=== PATIENT | male | born 1980 | race Caucasian/White ===

== ENCOUNTER 2016-11-10 10:31 | Emergency (ER) | payer MEDICAID ==
[2016-11-10 11:13] VITALS: BP 156/87
--- NOTE | 2016-11-10 11:30 | EDM.PDOC ---
ED HPI GENERAL MEDICAL PROBLEM - General Chief Complaint: General Stated Complaint: BLEEDING HEMORID??? Time Seen by Provider: 11/10/16 11:12 Source of Information: Reports: Patient, RN notes reviewed History Limitations: Reports: No limitations - History of Present Illness INITIAL COMMENTS - FREE TEXT/NARRATIVE: 36-year-old gentleman presents to the emergency department a complaint of bleeding hemorrhoid he states this started today he did pass a clot and had blood in the toilet it was significantly painful but the pain now has improved, as the new event has never had this before no history of colon cancer or inflammatory bowel Rectal Pain Score (Numeric/FACES): 7 - Related Data Allergies Allergy/AdvReac Type Severity Reaction Status Date / Time Sulfa (Sulfonamide Allergy Hives Verified 11/10/16 11:08 Antibiotics) Home Meds: Home Meds Ibuprofen 800 mg PO BID PRN 09/26/15 [History] Past Medical History Musculoskeletal History: Reports: Back pain, chronic, Other (see below) Other Musculoskeletal History: gets back injections Psychiatric History: Reports: Anxiety Hematologic History: Reports: Other (see below) Other Hematologic History: "high iron in my blood so I donate blood" - Infectious Disease History Infectious Disease History: Reports: Chicken pox Social & Family History - Tobacco Use Smoking Status *Q: Current Every Day Smoker Years of Tobacco use: 15 Packs/Tins Daily: 0.3 Used Tobacco, but Quit: No Second Hand Smoke Exposure: No - Caffeine Use Caffeine Use: Reports: Soda - Alcohol Use Days Per Week of Alcohol Use: 1 Number of Drinks Per Day: 2 Total Drinks Per Week: 2 - Recreational Drug Use Recreational Drug Use: No ED ROS GENERAL - Review of Systems Review Of Systems: See Below Constitutional: Reports: no symptoms Respiratory: Reports: no symptoms Cardiovascular: Reports: No symptoms GI/Abdominal: Reports: Bloody stool. Denies: Abdominal pain, Diarrhea, Nausea, Vomiting ED EXAM, GENERAL - Physical Exam Exam: See Below Exam Limited By: No limitations General Appearance: alert, WD/WN, no apparent distress Rectal (Males) Exam: Normal rectal tone, Bloody Stool, Hemorrhoids (Ruptured with bright red blood present) Course - Vital Signs Last Recorded V/S: Last Vital Signs Temp 97.2 F 11/10/16 11:07 Pulse 59 L 11/10/16 11:07 Resp 20 11/10/16 11:07 BP 156/87 H 11/10/16 11:07 Pulse Ox 96 11/10/16 11:07 Departure - Departure Time of Disposition: 11:27 Disposition: Home, Self-Care 01 Condition: good Clinical Impression: External hemorrhoid, bleeding Instructions: How to Take a Sitz Bath, Hemorrhoids, [id number] Referrals: Jerson Lyles LEATHER COATER [Primary Care Provider] - Forms: ED Department Discharge Additional Instructions: He used Anusol-HC as needed for symptomatic relief, follow the guidelines on the handout, follow up with her primary care next 3-5 days to evaluate the need for colonoscopy given your risk factors - Assessment/Plan Plan: Assessment Acuity = acute Site and laterality = hemorrhoid Etiology = unclear etiology Manifestations = none Location of injury = home Lab values = none Plan I did review pathophysiology with him and provided him Anusol HC for symptomatic relief as well as a handout on hemorrhoids with sitz baths and fiber diet asked him to follow up with his primary care provider to discuss the need for early colonoscopy given the rectal bleeding Patient was in agreement with the plan all questions were answered, they were instructed to return to the emergency department or call for worsening symptoms. This note was dictated using [employer] voice recognition software please call with any questions.
== END 2016-11-10 11:35 | disposition home or self-care (01) ==
LOC: JP.ED 10:31
DX: K64.4 Residual hemorrhoidal skin tags (principal); F17.210 Nicotine dependence, cigarettes, uncomplicated; Z88.2 Allergy status to sulfonamides; Z88.8 Allergy status to other drugs, medicaments and biological substances
CPT/HCPCS: 99283

== ENCOUNTER 2017-03-23 20:06 | Emergency (ER) | payer MEDICAID ==
[2017-03-23 20:32] VITALS: BP 145/95
--- NOTE | 2017-03-23 21:10 | EDM.PDOC ---
ED HPI GENERAL MEDICAL PROBLEM - General Stated Complaint: BACK HURTS NOT AN ACCIDENT Time Seen by Provider: 03/23/17 21:04 Source of Information: Reports: Patient History Limitations: Reports: No Limitations - History of Present Illness INITIAL COMMENTS - FREE TEXT/NARRATIVE: 36-year-old male with chronic documented low back pain that was doing better for the last 4-6 months after some steroid injections, has flared up again over the last several weeks. I reviewed his clinic records and he did have a reexamination recently and is set up to restart steroid injections in one week. He used a compactor at work which has increased his symptoms, he has left lower back pain radiating into the groin and also into the left buttock. No leg weakness or incontinence. He had Flexeril in the past and looked everywhere for the prescription and couldn't find them, he has only had 10 hydrocodone prescribed in the last year Onset: Gradual (Over the past several days) Location: Reports: Back Quality: Reports: Ache, Stabbing Severity: Moderate Worsens with: Reports: Movement Associated Symptoms: Reports: No Other Symptoms back Pain Score (Numeric/FACES): 10 - Related Data Allergies Allergy/AdvReac Type Severity Reaction Status Date / Time Sulfa (Sulfonamide Allergy Hives Verified 11/10/16 11:08 Antibiotics) Home Meds: Home Meds NK [No Known Home Meds] 03/23/17 [History] Past Medical History Musculoskeletal History: Reports: Back Pain, Chronic, Other (See Below) Other Musculoskeletal History: injections Psychiatric History: Reports: Anxiety Hematologic History: Reports: Other (See Below) Other Hematologic History: "high iron in my blood so I donate blood" - Infectious Disease History Infectious Disease History: Reports: Chicken Pox Social & Family History - Tobacco Use Smoking Status *Q: Current Every Day Smoker Years of Tobacco use: 15 Packs/Tins Daily: 0.3 Used Tobacco, but Quit: No Second Hand Smoke Exposure: No - Caffeine Use Caffeine Use: Reports: Soda - Alcohol Use Days Per Week of Alcohol Use: 1 Number of Drinks Per Day: 2 Total Drinks Per Week: 2 - Recreational Drug Use Recreational Drug Use: No ED ROS GENERAL - Review of Systems Review Of Systems: See Below Constitutional: Denies: Fever Respiratory: Denies: Shortness of Breath Cardiovascular: Denies: Chest Pain GI/Abdominal: Denies: Nausea, Vomiting : Reports: No Symptoms. Denies: Incontinence Skin: Reports: No Symptoms Neurological: Denies: Paresthesia Psychiatric: Reports: No Symptoms ED EXAM,LOWER BACK PAIN/INJURY - Physical Exam Exam: See Below Exam Limited By: No Limitations General Appearance: Alert, No Apparent Distress (Patient is not distressed but does look uncomfortable) Respiratory/Chest: No Respiratory Distress Back Exam: Muscle Spasm (Muscles are tight over the left lower lumbar spine), Paraspinal Tenderness (Over the lower lumbar spine especially on the left side) Neurological: No Motor/Sensory Deficits. No: Straight Leg Raise (L), Straight Leg Raise (R) Course - Vital Signs Last Recorded V/S: Last Vital Signs Temp 96.5 F 03/23/17 20:37 Pulse 63 03/23/17 20:37 Resp 16 03/23/17 20:37 BP 145/95 H 03/23/17 20:37 Pulse Ox 98 03/23/17 20:37 - Orders/Labs/Meds Meds: Medications Discontinued Medications Generic Name Dose Route Start Last Admin Trade Name Chris PRN Reason Stop Dose Admin Methylprednisolone Sodium Succinate 125 mg 03/23/17 21:11 03/23/17 21:19 Solu-Medrol IM 03/23/17 21:12 125 mg ONETIME ONE Administration - Re-Assessments/Exams Free Text/Narrative Re-Assessment/Exam: 03/23/17 21:16 Patient was given an injection of Solu-Medrol 125 mg IM. He was also provided with 15 Flexeril and 10 hydrocodone to use along with anti-inflammatories until he can get in for a steroid injections. He can return if worsening such as developing incontinence, weakness or numbness of the lower extremities Departure - Departure Time of Disposition: 21:29 Disposition: Home, Self-Care 01 Condition: Good Clinical Impression: Acute exacerbation of chronic low back pain - Discharge Information Instructions: Back Pain, Adult, [id number] Referrals: Jerson Lyles NP [Primary Care Provider] - Forms: ED Department Discharge Care Plan Goals: Take a regular dose of ibuprofen or naproxen, add muscle relaxers and stronger pain medications if needed. Rest tomorrow and increase activity as tolerated. Recheck as scheduled. Return sooner if you develop weakness in the legs, numbness, or loss of bowel or bladder control.
[2017-03-23] MEDS ORDERED: methylPREDNISolone Sodium Succinate 125 MG/2 ML SDV IM ONE (21:11)
== END 2017-03-23 21:29 | disposition home or self-care (01) ==
LOC: JP.ED 20:06
DX: G89.29 Other chronic pain (principal); M54.5 Low back pain; F17.210 Nicotine dependence, cigarettes, uncomplicated; Z88.2 Allergy status to sulfonamides
CPT/HCPCS: 96372; 99283; J2930

== ENCOUNTER 2017-03-26 17:44 | Emergency (ER) | payer MEDICAID ==
[2017-03-26 18:06] VITALS: BP 147/123
--- NOTE | 2017-03-26 18:21 | EDM.PDOC ---
ED HPI GENERAL MEDICAL PROBLEM - General Chief Complaint: Skin Complaint Stated Complaint: RASH; SWOLLEN LEG/ANKLE Time Seen by Provider: 03/26/17 18:00 Source of Information: Reports: Patient History Limitations: Reports: No Limitations - History of Present Illness INITIAL COMMENTS - FREE TEXT/NARRATIVE: History of present illness: [36-year-old male presents with a pleuritic rash on his lower extremities. He has a history of chronic low back pain and is due for some injections March 31. He just finished a course of local but continues to takes Flexeril. He has no significant respiratory symptoms and otherwise feels well. This is been going on for about 3 days. He took some Benadryl yesterday that seemed to help his rash some. He does have sciatica down the left lower extremity. But this is chronic for him] Review of systems: As per history of present illness and below otherwise all systems reviewed and negative. Past medical history: As per history of present illness and as reviewed below otherwise noncontributory. Surgical history: As per history of present illness and as reviewed below otherwise noncontributory. Social history: No reported history of drug or alcohol abuse. Family history: As per history of present illness and as reviewed below otherwise noncontributory. Physical exam: General: No acute distress alert and oriented HEENT: Atraumatic, normocephalic, pupils reactive, negative for conjunctival pallor or scleral icterus, mucous membranes moist, throat clear, neck supple, nontender, trachea midline. Lungs: Clear to auscultation, breath sounds equal bilaterally, chest nontender. Heart: S1S2, regular, negative for clicks, rubs, or JVD. Abdomen: Soft, nondistended, nontender. Negative for masses or hepatosplenomegaly. Pelvis: Stable nontender. Genitourinary: Deferred. Rectal: Deferred. Extremities: Atraumatic, negative for cords or calf pain. Neurovascular unremarkable. Neuro: Awake, alert, oriented. Exam nonfocal. Skin: He does have a hive-like rash to his lower extremities probably, straight from his knees down bilaterally. He is flat and blanching. Diagnostics: [] Therapeutics: [] Impression: [Allergic rash] Plan: [Advising him to stop taking Flexeril to see if this might be the culprit. Will providing him with a Medrol Dosepak he can continue to use Benadryl and follow- up for his injections on March 31. I told him that is possible that the Medrol Dosepak might help his back pain as well.] Definitive disposition and diagnosis as appropriate pending reevaluation and review of above. - Related Data Allergies Allergy/AdvReac Type Severity Reaction Status Date / Time Sulfa (Sulfonamide Allergy Hives Verified 11/10/16 11:08 Antibiotics) Home Meds: Home Meds Acetaminophen/HYDROcodone [[place] 325-5 MG] 1 tab PO ASDIRECTED 03/26/17 [History ] Cyclobenzaprine [Flexeril] 10 mg PO ASDIRECTED 03/26/17 [History] Past Medical History Musculoskeletal History: Reports: Back Pain, Chronic, Other (See Below) Other Musculoskeletal History: injections Psychiatric History: Reports: Anxiety Hematologic History: Reports: Other (See Below) Other Hematologic History: "high iron in my blood so I donate blood" - Infectious Disease History Infectious Disease History: Reports: Chicken Pox Social & Family History - Tobacco Use Smoking Status *Q: Light Tobacco Smoker Years of Tobacco use: 20 Packs/Tins Daily: 0.4 Used Tobacco, but Quit: No Second Hand Smoke Exposure: No - Caffeine Use Caffeine Use: Reports: None - Alcohol Use Days Per Week of Alcohol Use: 1 Number of Drinks Per Day: 2 Total Drinks Per Week: 2 - Recreational Drug Use Recreational Drug Use: No ED ROS GENERAL - Review of Systems Review Of Systems: ROS reveals no pertinent complaints other than HPI. ED EXAM, SKIN/RASH Exam: See Below Course - Vital Signs Last Recorded V/S: Last Vital Signs Temp 36.3 C 03/26/17 17:55 Pulse 69 03/26/17 17:55 Resp 20 03/26/17 17:55 BP 147/123 H 03/26/17 17:55 Pulse Ox 97 03/26/17 17:55 Departure - Departure Time of Disposition: 18:20 Disposition: Home, Self-Care 01 Condition: Good Clinical Impression: Allergic reaction Qualifiers: Encounter type: initial encounter Qualified Code(s): T78.40XA - Allergy, unspecified, initial encounter - Discharge Information Forms: ED Department Discharge Additional Instructions: If the Flexeril is the culprit in your reaction it should not come back if he stay away from Flexeril. If it does not go away need continue have trouble in spite of stopping the Flexeril then you'll have to follow up with your doctor in further investigation will need to be undertaken.
== END 2017-03-26 18:26 | disposition home or self-care (01) ==
LOC: JP.ED 17:44
DX: T78.40XA Allergy, unspecified, initial encounter (principal); R21 Rash and other nonspecific skin eruption; Z88.2 Allergy status to sulfonamides; F17.210 Nicotine dependence, cigarettes, uncomplicated
CPT/HCPCS: 99283

== ENCOUNTER 2017-05-16 19:57 | Emergency (ER) | payer MEDICAID ==
[2017-05-16] MEDS ORDERED: Tetracaine HCl/PF 0.5% 4 ML Bottle EYERT ONE (20:08)
--- NOTE | 2017-05-16 20:44 | EDM.PDOC ---
ED HPI GENERAL MEDICAL PROBLEM - General Chief Complaint: Eye Problems Stated Complaint: SOMETHING IN RT EYE Time Seen by Provider: 05/16/17 20:06 Source of Information: Reports: Patient History Limitations: Reports: No Limitations - History of Present Illness INITIAL COMMENTS - FREE TEXT/NARRATIVE: right eye pain.; this is a 36 year old male presents to ER for evaluation of eye pain. reports was doing wood today, may of gotten a piece of wood chip in eye. Has tried to flush with water, rubbing the eye, just feels like something is in the eye. denies any vision changes except for painful blinking of eye Onset: Today Onset Date: 05/16/17 Onset Time: 14:00 Duration: Hour(s): Location: Reports: Other (right eye) Quality: Reports: Ache, Burning Improves with: Reports: None Worsens with: Reports: None Associated Symptoms: Reports: No Other Symptoms - Related Data Allergies Allergy/AdvReac Type Severity Reaction Status Date / Time Sulfa (Sulfonamide Allergy Hives Verified 04/08/17 14:03 Antibiotics) Home Meds: Home Meds Ibuprofen [Advil] 400 mg PO Q6H PRN 04/08/17 [History] Past Medical History - Past Health History Medical/Surgical History: Denies Medical/Surgical History Musculoskeletal History: Reports: Back Pain, Chronic, Other (See Below) Other Musculoskeletal History: injections Psychiatric History: Reports: Anxiety Hematologic History: Reports: Other (See Below) Other Hematologic History: "high iron in my blood so I donate blood" - Infectious Disease History Infectious Disease History: Reports: Chicken Pox Social & Family History - Tobacco Use Smoking Status *Q: Current Every Day Smoker Years of Tobacco use: 20 Packs/Tins Daily: 0.5 Used Tobacco, but Quit: No Second Hand Smoke Exposure: No - Caffeine Use Caffeine Use: Reports: None - Alcohol Use Days Per Week of Alcohol Use: 1 Number of Drinks Per Day: 2 Total Drinks Per Week: 2 - Recreational Drug Use Recreational Drug Use: No ED ROS GENERAL - Review of Systems Review Of Systems: See Below Constitutional: Reports: No Symptoms HEENT: Reports: Eye Pain ED EXAM GENERAL W FULL EYE - Physical Exam Exam: See Below Exam Limited By: No Limitations General Appearance: Alert, WD/WN, No Apparent Distress Eye Exam: Right Eye: Corneal Abrasion, Foreign Body (tiny speck of debri and mucous), Bilateral Eye: PERRL Eyelids: Right: Edema (lid mild redness and edema), Erythema, Foreign Body ( tiny specks of debri noted), Lid Everted for Exam, Left: Normal Appearance Conjunctiva & Sclera: Right: Discharge, Foreign Body, Injected Cornea Exam: Right: Corneal Abrasion, Foreign Body Extraocular Movements: Bilateral: Intact Pupils: Normal Accommodation Pupillary Size: Bilateral: 7 mm Pupillary Reaction: Bilateral: Brisk Comments: removed debri by flushing with normal saline and qtip to remove. patient tolerated without difficulty. Head: Atraumatic, Normocephalic Neck: Supple Respiratory/Chest: No Respiratory Distress Psychiatric: Normal Mood Skin Exam: Warm, Dry Lymphatic: No Adenopathy ED EYE w/ Add Procedure - Eye Procedure Alcaine Drops Administered: Yes Eye FB Removal: Removal w/ Cotton Swab Eye Irrigated w/ Saline (ccs): 10 Antibiotic Oinment/Drps Admin: Right Eye Course - Orders/Labs/Meds Meds: Medications Discontinued Medications Generic Name Dose Route Start Last Admin Trade Name Chris PRN Reason Stop Dose Admin Tetracaine HCl 0 ml 05/16/17 20:08 05/16/17 20:26 Tetracaine 0.5% Steri-Unit Germania EYERT 05/16/17 20:09 1 ml ASDIRECTED ONE Administration Departure - Departure Time of Disposition: 20:52 Disposition: Home, Self-Care 01 Condition: Good Clinical Impression: Corneal abrasion Qualifiers: Encounter type: initial encounter Laterality: right Qualified Code(s): S05.01XA - Injury of conjunctiva and corneal abrasion without foreign body, right eye, initial encounter Foreign body, eye Qualifiers: Encounter type: initial encounter Laterality: right Qualified Code(s): T15.91XA - Foreign body on external eye, part unspecified, right eye, initial encounter - Discharge Information Referrals: Jerson Lyles INDUSTRIAL ENERGY ENGINEER [Primary Care Provider] - Forms: ED Department Discharge Care Plan Goals: Corneal Abrasion, foreign body right eye -Erythromycin eye ointment 3 times a day for 3 days then prn -eye drops to eye for pain as needed x 2 days -advise to follow up in Eye Clinic for recheck if not improving. Return to ER for any vision changes, increased pain or redness or any concerns. - Problem List & Annotations (1) Corneal abrasion SNOMED Code(s): 54634993 Code(s): S05.00XA - INJ CONJUNCTIVA AND CORNEAL ABRASION W/O FB, UNSP EYE, INIT Status: Acute Priority: High Current Visit: Yes Qualifiers: Encounter type: initial encounter Laterality: right Qualified Code(s): S05.01XA - Injury of conjunctiva and corneal abrasion without foreign body, right eye, initial encounter (2) Foreign body, eye SNOMED Code(s): 05720277 Code(s): T15.90XA - FOREIGN BODY ON EXTERNAL EYE, PART UNSP, UNSP EYE, INIT Status: Acute Priority: Medium Current Visit: Yes Qualifiers: Encounter type: initial encounter Laterality: right Qualified Code(s): T15.91XA - Foreign body on external eye, part unspecified, right eye, initial encounter - Problem List Review Problem List Initiated/Reviewed/Updated: Yes - Assessment/Plan Plan: Corneal Abrasion, foreign body right eye -Erythromycin eye ointment 3 times a day for 3 days then prn -eye drops to eye for pain as needed x 2 days -advise to follow up in Eye Clinic for recheck if not improving. foreign body right eye -resolved. Return to ER for any vision changes, increased pain or redness or any concerns.
[2017-05-16 20:51] VITALS: BP 119/61
== END 2017-05-16 21:35 | disposition home or self-care (01) ==
LOC: JP.ED 19:57
DX: T15.01XA Foreign body in cornea, right eye, initial encounter (principal); F17.210 Nicotine dependence, cigarettes, uncomplicated; Z88.2 Allergy status to sulfonamides; X58.XXXA Exposure to other specified factors, initial encounter; Y93.89 Activity, other specified
CPT/HCPCS: 65205; 99283; A9270

== ENCOUNTER 2017-06-16 19:39 | Emergency (ER) | payer MEDICAID ==
[2017-06-16 20:01] VITALS: BP 140/64
[2017-06-16] MEDS ORDERED: Acetaminophen/HYDROcodone 325-5 MG Tab PO ONE (21:15)
--- NOTE | 2017-06-16 21:21 | EDM.PDOC ---
ED HPI GENERAL MEDICAL PROBLEM - General Chief Complaint: Back Pain or Injury Stated Complaint: BODY ACHES / HOT & COLD Time Seen by Provider: 06/16/17 21:11 Source of Information: Reports: Patient, RN Notes Reviewed History Limitations: Reports: No Limitations - History of Present Illness INITIAL COMMENTS - FREE TEXT/NARRATIVE: 36-year-old gentleman presents emergency department day complaint of right shoulder pain this occurred a couple days ago when he was reaching an upper shelf and overextended himself here to popping noise his biggest issue is ongoing pain he is having some difficulties sleeping tonight and he does need a note for work Generalized Pain Score (Numeric/FACES): 8 - Related Data Allergies Allergy/AdvReac Type Severity Reaction Status Date / Time Sulfa (Sulfonamide Allergy Hives Verified 04/08/17 14:03 Antibiotics) Home Meds: Home Meds Ibuprofen [Advil] 400 mg PO Q6H PRN 04/08/17 [History] Past Medical History Musculoskeletal History: Reports: Back Pain, Chronic, Other (See Below) Other Musculoskeletal History: injections Psychiatric History: Reports: Anxiety Hematologic History: Reports: Other (See Below) Other Hematologic History: "high iron in my blood so I donate blood" - Infectious Disease History Infectious Disease History: Reports: Chicken Pox Social & Family History - Tobacco Use Smoking Status *Q: Current Every Day Smoker Years of Tobacco use: 15 Packs/Tins Daily: 0.2 Used Tobacco, but Quit: No Second Hand Smoke Exposure: No - Caffeine Use Caffeine Use: Reports: Coffee - Alcohol Use Days Per Week of Alcohol Use: 1 Number of Drinks Per Day: 2 Total Drinks Per Week: 2 - Recreational Drug Use Recreational Drug Use: No ED ROS GENERAL - Review of Systems Review Of Systems: See Below Musculoskeletal: Reports: Shoulder Pain Skin: Reports: No Symptoms Neurological: Reports: No Symptoms ED EXAM, GENERAL - Physical Exam Exam: See Below Free Text/Narrative:: Examination the shoulder right side full range of motion I don't appreciate any point tenderness wrist elbow or shoulder Exam Limited By: No Limitations General Appearance: Alert, WD/WN, No Apparent Distress Respiratory/Chest: No Respiratory Distress, Lungs Clear, Normal Breath Sounds, No Accessory Muscle Use, Chest Non-Tender Cardiovascular: Regular Rate, Rhythm, No Murmur Peripheral Pulses: 2+: Radial (R) Extremities: No: Arm Pain Course - Vital Signs Last Recorded V/S: Last Vital Signs Temp 97.7 F 06/16/17 20:00 Pulse 63 06/16/17 20:00 Resp 18 06/16/17 20:00 BP 140/64 06/16/17 20:00 Pulse Ox 97 06/16/17 20:00 - Orders/Labs/Meds Orders: Active Orders 24 hr Category Date Time Status Acetaminophen/HYDROcodone [[place] 325-5 MG] Med 06/16/17 21:15 Once 1 tab PO ONETIME ONE Medication Orders Hydrocodone Bitart/Acetaminophen ([place] 325-5 Mg) 1 tab PO ONETIME ONE Stop: 06/16/17 21:16 Meds: Medications Generic Name Dose Route Start Last Admin Trade Name Freq PRN Reason Stop Dose Admin Hydrocodone Bitart/Acetaminophen 1 tab 06/16/17 21:15 [place] 325-5 Mg PO 06/16/17 21:16 ONETIME ONE Departure - Departure Time of Disposition: 21:21 Disposition: Home, Self-Care 01 Condition: Good (Try and get another one endonasal outlook dragon) Clinical Impression: Right shoulder pain Qualifiers: Chronicity: acute Qualified Code(s): M25.511 - Pain in right shoulder - Discharge Information Referrals: Jerson Lyles SENIOR SOLUTIONS ENGINEER [Primary Care Provider] - Additional Instructions: Please follow-up with your primary care in 3-5 days for reevaluation if not better, call or return to the emergency department worsening of symptoms - My Orders Last 24 Hours: My Active Orders 06/16/17 21:15 Acetaminophen/HYDROcodone [[place] 325-5 MG] 1 tab PO ONETIME ONE - Assessment/Plan Last 24 Hours: My Active Orders 06/16/17 21:15 Acetaminophen/HYDROcodone [[place] 325-5 MG] 1 tab PO ONETIME ONE Plan: Assessment Acuity = acute Site and laterality = right shoulder pain Etiology = secondary to stretching injury Manifestations = none Location of injury = Home Lab values = none Plan 1 hydrocodone provided for pain control this evening note for work written follow-up with primary care 3-5 days if not better Patient was in agreement with the plan all questions were answered, they were instructed to return to the emergency department or call for worsening symptoms. This note was dictated using [employer] voice recognition software please call with any questions.
== END 2017-06-16 21:38 | disposition home or self-care (01) ==
LOC: JP.ED 19:39
DX: M25.511 Pain in right shoulder (principal); F17.210 Nicotine dependence, cigarettes, uncomplicated; Z88.2 Allergy status to sulfonamides
CPT/HCPCS: 99283; A9270

== ENCOUNTER 2017-07-03 14:30 | Emergency (ER) | payer MEDICAID ==
[2017-07-03 14:59] VITALS: BP 118/86
--- NOTE | 2017-07-03 15:06 | EDM.PDOC ---
ED HPI GENERAL MEDICAL PROBLEM - General Chief Complaint: Laceration Stated Complaint: RIGHT FIRST FINGER LACERATION Time Seen by Provider: 07/03/17 14:50 Source of Information: Reports: Patient History Limitations: Reports: No Limitations - History of Present Illness INITIAL COMMENTS - FREE TEXT/NARRATIVE: 36 yo male presents with a small laceration to the dorsum of his R index finger. Last tetanus 5 yrs ago. A piece of wood caused the injury. 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) - Related Data Allergies Allergy/AdvReac Type Severity Reaction Status Date / Time Sulfa (Sulfonamide Allergy Hives Verified 04/08/17 14:03 Antibiotics) Home Meds: Home Meds NK [No Known Home Meds] 07/03/17 [History] Past Medical History - Past Health History Medical/Surgical History: Denies Medical/Surgical History Musculoskeletal History: Reports: Back Pain, Chronic, Other (See Below) Other Musculoskeletal History: injections Psychiatric History: Reports: Anxiety Hematologic History: Reports: Other (See Below) Other Hematologic History: "high iron in my blood so I donate blood" - Infectious Disease History Infectious Disease History: Reports: Chicken Pox Social & Family History - Tobacco Use Smoking Status *Q: Current Every Day Smoker Years of Tobacco use: 10 Packs/Tins Daily: 0.5 Used Tobacco, but Quit: No Second Hand Smoke Exposure: No - Caffeine Use Caffeine Use: Reports: Coffee - Alcohol Use Days Per Week of Alcohol Use: 1 Number of Drinks Per Day: 2 Total Drinks Per Week: 2 - Recreational Drug Use Recreational Drug Use: No ED ROS GENERAL - Review of Systems Review Of Systems: See Below Constitutional: Reports: No Symptoms Musculoskeletal: Reports: No Symptoms Skin: Reports: Wound Neurological: Reports: No Symptoms ED EXAM, SKIN/RASH Exam: See Below Exam Limited By: No Limitations General Appearance: Alert, WD/WN, No Apparent Distress Neurological: Alert, Oriented, CN II-XII Intact, Normal Cognition, No Motor/ Sensory Deficits Psychiatric: Normal Affect, Normal Mood Skin: Warm, Dry, Normal Color, No Rash, Wound/Incision (4 mm linear laceration of the R index finger over the PIP jt dorsally. No active bleeding. CMS intact distally. No sign of FB. ) Location, Skin: Upper Extremity, Right Characteristics: Linear Associated features: Tenderness Lymphatic: No Adenopathy Course - Vital Signs Text/Narrative:: Wound cleaned and dressed per RN. Tetanus offered and declined. Last Recorded V/S: Last Vital Signs Temp 36.6 C 07/03/17 14:57 Pulse 76 07/03/17 14:57 Resp 15 07/03/17 14:57 BP 118/86 07/03/17 14:57 Pulse Ox 97 07/03/17 14:57 Departure - Departure Time of Disposition: 15:06 Disposition: Home, Self-Care 01 Condition: Good Clinical Impression: Finger laceration Qualifiers: Encounter type: initial encounter Finger: index finger Damage to nail status: without damage Foreign body presence: without foreign body Laterality: right Qualified Code(s): S61.210A - Laceration without foreign body of right index finger without damage to nail, initial encounter - Discharge Information Referrals: PCP,None [Primary Care Provider] - Forms: ED Department Discharge Additional Instructions: Leave today's dressing on x 2 days and keep wound clean. Take acetaminophen 1000 mg every 6 hrs as needed for pain relief. Recheck for signs of infection. Once the dressing is removed, then wash with soap and water twice daily. Dry. Apply Bacitracin ointment and a new bandage twice daily.
== END 2017-07-03 15:08 | disposition home or self-care (01) ==
LOC: JP.ED 14:30
DX: S61.210A Laceration without foreign body of right index finger without damage to nail, initial encounter (principal); Z88.2 Allergy status to sulfonamides; W26.8XXA Contact with other sharp object(s), not elsewhere classified, initial encounter
CPT/HCPCS: 99282; 99283

== ENCOUNTER 2017-07-24 16:40 | Emergency (ER) | payer MEDICAID ==
[2017-07-24 17:15] VITALS: BP 134/76
--- NOTE | 2017-07-24 17:53 | EDM.PDOC ---
ED HPI GENERAL MEDICAL PROBLEM - General Chief Complaint: ENT Problem Stated Complaint: TOOTHACHE Time Seen by Provider: 07/24/17 17:30 Source of Information: Reports: Patient History Limitations: Reports: No Limitations - History of Present Illness INITIAL COMMENTS - FREE TEXT/NARRATIVE: 36-year-old male with upper right dental pain for the past 2 days. Onset: Gradual (Symptoms have been waxing and waning for several weeks but worse the last 2 days) Quality: Reports: Ache Severity: Moderate Associated Symptoms: Reports: No Other Symptoms Right Upper Tooth/Teeth Pain Score (Numeric/FACES): 10 - Related Data Allergies Allergy/AdvReac Type Severity Reaction Status Date / Time Sulfa (Sulfonamide Allergy Hives Verified 07/24/17 17:15 Antibiotics) Home Meds: Home Meds NK [No Known Home Meds] 07/03/17 [History] Past Medical History - Past Health History Medical/Surgical History: Denies Medical/Surgical History Musculoskeletal History: Reports: Back Pain, Chronic, Other (See Below) Other Musculoskeletal History: injections Psychiatric History: Reports: Anxiety Hematologic History: Reports: Other (See Below) Other Hematologic History: "high iron in my blood so I donate blood" - Infectious Disease History Infectious Disease History: Reports: Chicken Pox Social & Family History - Tobacco Use Smoking Status *Q: Light Tobacco Smoker Years of Tobacco use: 15 Packs/Tins Daily: 0.5 Used Tobacco, but Quit: No Second Hand Smoke Exposure: No - Caffeine Use Caffeine Use: Reports: Coffee - Alcohol Use Days Per Week of Alcohol Use: 1 Number of Drinks Per Day: 2 Total Drinks Per Week: 2 - Recreational Drug Use Recreational Drug Use: No ED ROS ENT - Review of Systems Review Of Systems: See Below Constitutional: Denies: Fever, Chills Respiratory: Denies: Shortness of Breath GI/Abdominal: Denies: Nausea, Vomiting Skin: Denies: Erythema Neurological: Denies: Headache ED EXAM, ENT - Physical Exam Exam: See Below Exam Limited By: No Limitations General Appearance: Alert, No Apparent Distress (Looks uncomfortable but in no distress) Mouth/Throat: Other (No significant gingival erythema or swelling. He does have percussion tenderness over the first right maxillary molar and canine) Course - Vital Signs Last Recorded V/S: Last Vital Signs Temp 98.4 F 07/24/17 17:15 Pulse 71 07/24/17 17:15 Resp 16 07/24/17 17:15 BP 134/76 07/24/17 17:15 Pulse Ox 98 07/24/17 17:15 - Re-Assessments/Exams Free Text/Narrative Re-Assessment/Exam: 07/25/17 07:23 Patient will be placed on Pen-Vee K 500 mg 4 times a day for the next 10 days, encouraged to take an anti-inflammatory and given 10 hydrocodone for extra pain control. He should try to get a dental appointment within the next 1-2 weeks for dental x-rays and evaluation. Departure - Departure Time of Disposition: 18:05 Disposition: Home, Self-Care 01 Condition: Good Clinical Impression: Dental caries - Discharge Information Instructions: Dental Abscess, [id number] Referrals: Jerson Lyles NP [Primary Care Provider] - Forms: ED Department Discharge Care Plan Goals: Take antibiotic 4 times a day as prescribed. Take ibuprofen or naproxen as needed for pain and add stronger pain medications as directed if needed. Call the dental clinic next week to try to get in for an appointment as soon as possible.
== END 2017-07-24 18:05 | disposition home or self-care (01) ==
LOC: JP.ED 16:40
DX: K02.9 Dental caries, unspecified (principal); F17.210 Nicotine dependence, cigarettes, uncomplicated; Z88.2 Allergy status to sulfonamides
CPT/HCPCS: 99283

== ENCOUNTER 2017-08-16 13:00 | Emergency (ER) | payer MEDICAID ==
[2017-08-16 13:56] VITALS: BP 105/69
[2017-08-16] MEDS ORDERED: Ibuprofen 600 MG Tab PO ONE (14:07)
[2017-08-16] MEDS ORDERED: cefTRIAXone 1 GM, Lidocaine 1% 2.1 ML IM ONE ×2 (14:54)
--- NOTE | 2017-08-16 15:02 | EDM.PDOC ---
ED HPI GENERAL MEDICAL PROBLEM - General Chief Complaint: General Stated Complaint: SORE THROAT Time Seen by Provider: 08/16/17 14:00 Source of Information: Reports: Patient History Limitations: Reports: No Limitations - History of Present Illness INITIAL COMMENTS - FREE TEXT/NARRATIVE: pt arrived with a sore throat and body aches. He has been sick since yesterday, he has had chills. He did not have a flu shot. Onset: Other (yesterday. ) Duration: Hour(s): Location: Reports: Generalized, Other ( body aches. ) Associated Symptoms: Reports: Cough, Fever/Chills, Other ( sore throat. ) Generalized Pain Score (Numeric/FACES): 4 - Related Data Allergies Allergy/AdvReac Type Severity Reaction Status Date / Time Sulfa (Sulfonamide Allergy Hives Verified 07/24/17 17:15 Antibiotics) Home Meds: Home Meds NK [No Known Home Meds] 07/03/17 [History] Past Medical History - Past Health History Medical/Surgical History: Denies Medical/Surgical History Musculoskeletal History: Reports: Back Pain, Chronic, Other (See Below) Other Musculoskeletal History: injections Psychiatric History: Reports: Anxiety Hematologic History: Reports: Other (See Below) Other Hematologic History: "high iron in my blood so I donate blood" - Infectious Disease History Infectious Disease History: Reports: Chicken Pox Social & Family History - Tobacco Use Smoking Status *Q: Current Every Day Smoker Years of Tobacco use: 15 Packs/Tins Daily: 0.5 Used Tobacco, but Quit: No Second Hand Smoke Exposure: No - Caffeine Use Caffeine Use: Reports: None - Alcohol Use Days Per Week of Alcohol Use: 1 Number of Drinks Per Day: 2 Total Drinks Per Week: 2 - Recreational Drug Use Recreational Drug Use: No ED ROS GENERAL - Review of Systems Review Of Systems: See Below Constitutional: Reports: Chills, Malaise HEENT: Reports: Throat Pain, Throat Swelling Respiratory: Reports: Cough, Other (pt hs been coughing alot. ) Cardiovascular: Reports: No Symptoms Endocrine: Reports: No Symptoms GI/Abdominal: Reports: No Symptoms : Reports: No Symptoms Musculoskeletal: Reports: Other ( total body aches. ) ED EXAM, GENERAL - Physical Exam Exam: See Below Free Text/Narrative:: pt has chills. He has a sore throat and a cough. Exam Limited By: No Limitations General Appearance: Alert, Anxious Ears: Normal TMs Nose: Normal Inspection Throat/Mouth: Other ( throat is red and there is exudate present. ) Head: Atraumatic Neck: Lymphadenopathy (R), Lymphadenopathy (L) Respiratory/Chest: No Respiratory Distress Cardiovascular: Regular Rate, Rhythm GI/Abdominal: Soft, Non-Tender (Male) Exam: Deferred Rectal (Males) Exam: Deferred Extremities: Normal Inspection Neurological: Alert, Oriented, Normal Cognition Course - Vital Signs Last Recorded V/S: Last Vital Signs Temp 38.8 C H 08/16/17 14:16 Pulse 73 08/16/17 14:08 Resp 16 08/16/17 14:08 BP 105/69 08/16/17 14:08 Pulse Ox 95 08/16/17 14:08 - Orders/Labs/Meds Orders: Active Orders 24 hr Category Date Time Status CULTURE STREP A CONFIRMATION [RM] Stat Lab 08/16/17 14:09 Results STREP SCRN A RAPID W CULT CONF [RM] Stat Lab 08/16/17 14:09 Results Labs: Laboratory Tests 08/16/17 08/16/17 Range/Units 14:06 14:28 WBC 17.9 H (4.5-11.0) K/uL RBC 4.61 (4.30-5.90) M/uL Hgb 14.7 (12.0-15.0) g/dL Hct 42.9 (40.0-54.0) % MCV 93 (80-98) fL MCH 32 H (27-31) pg MCHC 34 (32-36) % Plt Count 197 (150-400) K/uL Neut % (Auto) 86 H (36-66) % Lymph % (Auto) 5 L (24-44) % Moore % (Auto) 10 H (2-6) % Eos % (Auto) 0 L (2-4) % Baso % (Auto) 0 (0-1) % Monoscreen Negative (NEGATIVE) Meds: Medications Discontinued Medications Generic Name Dose Route Start Last Admin Trade Name Freq PRN Reason Stop Dose Admin Ceftriaxone Sodium 1 gm/ 0 gm 08/16/17 14:54 Lidocaine HCl 2.1 ml IM 08/16/17 14:55 ONETIME ONE Ibuprofen 600 mg 08/16/17 14:07 08/16/17 14:16 Motrin PO 12/17/17 14:08 600 mg ONETIME ONE Administration - Re-Assessments/Exams Free Text/Narrative Re-Assessment/Exam: 08/16/17 15:02 influ was neg, strept was neg, Wbc was 17,000. Pt was given rocephen 1 gm im. Departure - Departure Time of Disposition: 15:03 Disposition: Home, Self-Care 01 Condition: Fair Clinical Impression: Acute pharyngitis - Discharge Information Referrals: Jerson Lyles NP [Primary Care Provider] - Care Plan Goals: tylenol and motrin for body aches, amoxicillin 500mg 2 tabs qam and 2 tabs q pm. push fluids. - My Orders Last 24 Hours: My Active Orders 08/16/17 14:09 CULTURE STREP A CONFIRMATION [RM] Stat STREP SCRN A RAPID W CULT CONF [RM] Stat - Assessment/Plan Last 24 Hours: My Active Orders 08/16/17 14:09 CULTURE STREP A CONFIRMATION [RM] Stat STREP SCRN A RAPID W CULT CONF [RM] Stat
== END 2017-08-16 15:25 | disposition home or self-care (01) ==
LOC: JP.ED 13:00
DX: J02.9 Acute pharyngitis, unspecified (principal); F17.210 Nicotine dependence, cigarettes, uncomplicated; Z88.2 Allergy status to sulfonamides
CPT/HCPCS: 36415; 85025; 86308; 87081; 87430; 87804; 96372; 99282; A9270; J0696; 99283

== ENCOUNTER 2017-11-30 17:15 | Emergency (ER) | payer MEDICAID ==
[2017-11-30 17:29] VITALS: BP 138/85
[2017-11-30] MEDS ORDERED: Ketorolac 60 MG/2 ML SDV IM ONE (18:13)
--- NOTE | 2017-11-30 18:24 | EDM.PDOC ---
ED HPI GENERAL MEDICAL PROBLEM - General Chief Complaint: Back Pain or Injury Stated Complaint: BACK HURTS NOT AN ACCIDENT Time Seen by Provider: 11/30/17 18:05 Source of Information: Reports: Patient, Old Records History Limitations: Reports: No Limitations - History of Present Illness INITIAL COMMENTS - FREE TEXT/NARRATIVE: 37 yo male with known hx of lumbar disc dz presents with low back pain associated with a pop while doing heavy lifting at work today. He also feels numbness, and warmth going down his L leg. He did on his own call anesthesia before coming to the ER and made an appt for an epidural for this coming Thursday. He has had these in the past for this same problem with good results. No bowel or bladder incontinence. His L testicle is a little sore now as well. 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) back Pain Score (Numeric/FACES): 10 - Related Data Allergies Allergy/AdvReac Type Severity Reaction Status Date / Time Sulfa (Sulfonamide Allergy Hives Verified 11/30/17 17:30 Antibiotics) Home Meds: Home Meds Acetaminophen/HYDROcodone [[place] 325-5 MG] 1 - 2 tab PO Q6H PRN #14 tab [Rx] Cyclobenzaprine [Flexeril] 10 mg PO TID PRN #10 tab 11/30/17 [Rx] Past Medical History - Past Health History Medical/Surgical History: Denies Medical/Surgical History Musculoskeletal History: Reports: Back Pain, Chronic, Other (See Below) Other Musculoskeletal History: injections Psychiatric History: Reports: Anxiety Hematologic History: Reports: Other (See Below) Other Hematologic History: "high iron in my blood so I donate blood" - Infectious Disease History Infectious Disease History: Reports: Chicken Pox Social & Family History - Tobacco Use Smoking Status *Q: Current Every Day Smoker Years of Tobacco use: 15 Packs/Tins Daily: 0.5 Used Tobacco, but Quit: No Second Hand Smoke Exposure: No - Caffeine Use Caffeine Use: Reports: None - Alcohol Use Days Per Week of Alcohol Use: 1 Number of Drinks Per Day: 2 Total Drinks Per Week: 2 - Recreational Drug Use Recreational Drug Use: No ED ROS GENERAL - Review of Systems Review Of Systems: See Below Constitutional: Reports: No Symptoms HEENT: Reports: No Symptoms Respiratory: Reports: No Symptoms Cardiovascular: Reports: No Symptoms GI/Abdominal: Reports: No Symptoms : Reports: Other (L testicle sore). Denies: Incontinence, Urinary Retention Musculoskeletal: Reports: Back Pain (low) Skin: Reports: No Symptoms Neurological: Reports: Numbness (L leg). Denies: Difficulty Walking, Weakness, Gait Disturbance ED EXAM,LOWER BACK PAIN/INJURY - Physical Exam Exam: See Below Exam Limited By: No Limitations General Appearance: Alert, WD/WN, No Apparent Distress Eye Exam: Bilateral Eye: Normal Inspection Ears: Normal External Exam, Normal Canal, Hearing Grossly Normal Nose: Normal Inspection, Normal Mucosa, No Blood Throat/Mouth: Normal Inspection, Normal Lips, Normal Voice, No Airway Compromise Head: Atraumatic, Normocephalic Neck: Normal Inspection Respiratory/Chest: No Respiratory Distress, Lungs Clear, No Accessory Muscle Use Cardiovascular: Regular Rate, Rhythm (Male) Exam: Cremasteric Reflex, Other (no inguinal hernias noted.). No: Hernia, Inguinal Lymphadenopathy, Rash, Scrotum Tenderness (L), Scrotum Tenderness (R), Suprapubic Fullness, Testicular Mass, Testicular Tenderness (L) , Testicular Tenderness (R) Back Exam: Normal Inspection, Decreased Range of Motion, Paraspinal Tenderness ( to L of L5 and down). No: Full Range of Motion, CVA Tenderness (R), CVA Tenderness (L), Vertebral Tenderness Extremities: Normal Inspection, Normal Range of Motion, Non-Tender Neurological: Alert, Normal Mood/Affect, CN II-XII Intact, No Motor/Sensory Deficits, Oriented x 3 Psychiatric: Normal Affect, Normal Mood Skin Exam: Warm, Dry, Intact, Normal Color, No Rash Course - Vital Signs Last Recorded V/S: Last Vital Signs Temp 37.4 C 11/30/17 17:29 Pulse 91 11/30/17 17:29 Resp 16 11/30/17 17:29 BP 138/85 11/30/17 17:29 Pulse Ox 94 L 11/30/17 17:29 - Orders/Labs/Meds Meds: Medications Discontinued Medications Generic Name Dose Route Start Last Admin Trade Name Freq PRN Reason Stop Dose Admin Ketorolac Tromethamine 60 mg 11/30/17 18:13 11/30/17 18:17 Toradol IM 11/30/17 18:14 60 mg ONETIME ONE Administration Departure - Departure Time of Disposition: 18:27 Disposition: Home, Self-Care 01 Condition: Fair Clinical Impression: Acute exacerbation of chronic low back pain - Discharge Information Prescriptions: Acetaminophen/HYDROcodone [[place] 325-5 MG] 1 - 2 tab PO Q6H PRN #14 tab PRN Reason: Pain Cyclobenzaprine [Flexeril] 10 mg PO TID PRN #10 tab PRN Reason: Pain Referrals: Jerson Lyles [employer]IVER [Primary Care Provider] - Forms: ED Department Discharge, ED Return to Work/School Form Additional Instructions: No lifting, bending, or twisting. Use ibuprofen 600 mg every 6 hrs with food, next dose after midnight. Take Flexeril and/or [place] as needed for further pain relief. Light duty at work. If not better after your appt on Thursday, then see your doctor to make further arrangements regarding your back.
== END 2017-11-30 18:26 | disposition home or self-care (01) ==
LOC: JP.ED 17:15
DX: G89.29 Other chronic pain (principal); M54.5 Low back pain; Z88.2 Allergy status to sulfonamides; F41.9 Anxiety disorder, unspecified; X50.0XXA Overexertion from strenuous movement or load, initial encounter; F17.210 Nicotine dependence, cigarettes, uncomplicated
CPT/HCPCS: 96372; 99283; J1885

== ENCOUNTER 2017-12-12 18:05 | Emergency (ER) | payer MEDICAID ==
[2017-12-12 19:22] VITALS: BP 170/85
[2017-12-12] MEDS ORDERED: Ketorolac 60 MG/2 ML SDV IM ONE (20:19)
--- NOTE | 2017-12-12 20:24 | EDM.PDOC ---
ED HPI GENERAL MEDICAL PROBLEM - General Chief Complaint: Back Pain or Injury Stated Complaint: BACK PAIN Time Seen by Provider: 12/12/17 20:12 Source of Information: Reports: Patient History Limitations: Reports: No Limitations - History of Present Illness INITIAL COMMENTS - FREE TEXT/NARRATIVE: This patient comes in with a complaint of sciatica. This is chronic for him. He got an injection in his back last week and that seemed to help a lot. He is supposed to be scheduled to have another one this coming week. The pain has gotten worse since the left lower back left buttocks radiates to the back left leg also radiates to the left testicle and assessment a chronic problem for him. He has some Flexeril left to hold him until Thursday he would like us a few hydrocodone tablets also he takes just a few a day. low back/ left testicle Pain Score (Numeric/FACES): 9 - Related Data Allergies Allergy/AdvReac Type Severity Reaction Status Date / Time Sulfa (Sulfonamide Allergy Hives Verified 11/30/17 17:30 Antibiotics) Home Meds: Home Meds Acetaminophen/HYDROcodone [[place] 325-5 MG] 1 - 2 tab PO Q6H PRN #14 tab [Rx] Cyclobenzaprine [Flexeril] 10 mg PO TID PRN #10 tab 11/30/17 [Rx] Past Medical History - Past Health History Medical/Surgical History: Denies Medical/Surgical History Musculoskeletal History: Reports: Back Pain, Chronic, Other (See Below) Other Musculoskeletal History: injections Psychiatric History: Reports: Anxiety Hematologic History: Reports: Other (See Below) Other Hematologic History: "high iron in my blood so I donate blood" - Infectious Disease History Infectious Disease History: Reports: Chicken Pox Social & Family History - Tobacco Use Smoking Status *Q: Current Every Day Smoker Years of Tobacco use: 25 Packs/Tins Daily: 0.1 Used Tobacco, but Quit: No Second Hand Smoke Exposure: No - Caffeine Use Caffeine Use: Reports: None - Alcohol Use Days Per Week of Alcohol Use: 1 Number of Drinks Per Day: 2 Total Drinks Per Week: 2 - Recreational Drug Use Recreational Drug Use: No ED ROS GENERAL - Review of Systems Review Of Systems: ROS reveals no pertinent complaints other than HPI. ED EXAM,LOWER BACK PAIN/INJURY - Physical Exam Exam: See Below Exam Limited By: No Limitations General Appearance: Alert, WD/WN, Mild Distress Back Exam: Normal Inspection. No: Muscle Spasm, Paraspinal Tenderness, Vertebral Tenderness Extremities: Normal Inspection Neurological: Alert, Normal Mood/Affect, Normal Dorsiflexion, Normal Plantar Flexion, Normal Gait, No Motor/Sensory Deficits Psychiatric: Normal Affect Skin Exam: Warm, Dry Course - Vital Signs Last Recorded V/S: Last Vital Signs Temp 36.4 C 12/12/17 19:21 Pulse 79 12/12/17 19:21 Resp 18 12/12/17 19:21 BP 170/85 H 12/12/17 19:21 Pulse Ox 97 12/12/17 19:21 - Orders/Labs/Meds Meds: Medications Discontinued Medications Generic Name Dose Route Start Last Admin Trade Name Chris PRN Reason Stop Dose Admin Ketorolac Tromethamine 60 mg 12/12/17 20:19 Toradol IM 12/12/17 20:20 ONETIME ONE - Re-Assessments/Exams Free Text/Narrative Re-Assessment/Exam: 12/12/17 20:23 This patient received an injection of Toradol 60 mg IM Departure - Departure Time of Disposition: 20:23 Disposition: Home, Self-Care 01 Condition: Fair Clinical Impression: Sciatica Qualifiers: Laterality: left Qualified Code(s): M54.32 - Sciatica, left side - Discharge Information Referrals: Jerson Lyles NP [Primary Care Provider] - Additional Instructions: Continue taking the Flexeril as before. Use [place] 5/325 one or 2 every 4 hours as needed for pain. Follow-up with your doctor on Thursday as planned
== END 2017-12-12 20:32 | disposition home or self-care (01) ==
LOC: JP.ED 18:05
DX: M54.42 Lumbago with sciatica, left side (principal); F17.210 Nicotine dependence, cigarettes, uncomplicated; Z88.2 Allergy status to sulfonamides; Z79.899 Other long term (current) drug therapy
CPT/HCPCS: 96372; 99283; J1885

== ENCOUNTER 2018-01-05 21:15 | Emergency (ER) | payer MEDICAID ==
[2018-01-05 22:08] VITALS: BP 141/72
--- NOTE | 2018-01-05 22:31 | EDM.PDOC ---
ED HPI GENERAL MEDICAL PROBLEM - General Chief Complaint: ENT Problem Stated Complaint: TOOTH PAIN Time Seen by Provider: 01/05/18 22:21 Source of Information: Reports: Patient, RN Notes Reviewed History Limitations: Reports: No Limitations - History of Present Illness INITIAL COMMENTS - FREE TEXT/NARRATIVE: 37-year-old gentleman presents to the emergency department day complaint of dental pain, he has multiple dental caries however he has dental pain is located predominantly on the superior left side he states he did poke the area with a toothpick early this morning and some thick purulent drainage appeared that was horribly tasting. He denies fevers no nausea or vomiting. He does have a dental appointment on Thursday teeth Pain Score (Numeric/FACES): 10 - Related Data Allergies Allergy/AdvReac Type Severity Reaction Status Date / Time Sulfa (Sulfonamide Allergy Hives Verified 01/05/18 22:14 Antibiotics) Home Meds: Home Meds Ibuprofen 800 mg PO TID PRN 01/05/18 [History] Past Medical History HEENT History: Reports: Other (See Below) Other HEENT History: multiple broken teeth Musculoskeletal History: Reports: Back Pain, Chronic, Other (See Below) Other Musculoskeletal History: injections Psychiatric History: Reports: Anxiety Hematologic History: Reports: Other (See Below) Other Hematologic History: "high iron in my blood so I donate blood" - Infectious Disease History Infectious Disease History: Reports: Chicken Pox Social & Family History - Tobacco Use Smoking Status *Q: Current Every Day Smoker Years of Tobacco use: 20 Packs/Tins Daily: 0.5 - Caffeine Use Caffeine Use: Reports: Coffee - Recreational Drug Use Recreational Drug Use: No ED ROS ENT - Review of Systems Review Of Systems: See Below Constitutional: Denies: Fever, Chills HEENT: Reports: Dental Pain, Other (Facial swelling) Respiratory: Reports: No Symptoms Cardiovascular: Reports: No Symptoms GI/Abdominal: Reports: No Symptoms ED EXAM, ENT - Physical Exam Exam: See Below Text/Narrative:: Mouth mucosa is moist and pink no erythema or exudate noted in soft palate tongue is midline uvula is midline multiple dental caries present there is tenderness over tooth #16, Exam Limited By: No Limitations General Appearance: Alert, WD/WN, No Apparent Distress Head: Atraumatic, Normocephalic Neck: Normal Inspection, Supple, Non-Tender, Full Range of Motion Respiratory/Chest: No Respiratory Distress, Lungs Clear, Normal Breath Sounds, No Accessory Muscle Use, Chest Non-Tender Cardiovascular: Regular Rate, Rhythm, No Murmur Course - Vital Signs Last Recorded V/S: Last Vital Signs Temp 97.0 F 01/05/18 22:16 Pulse 64 01/05/18 22:16 Resp 14 01/05/18 22:16 BP 141/72 H 01/05/18 22:16 Pulse Ox 97 01/05/18 22:16 Departure - Departure Time of Disposition: 22:31 Disposition: Home, Self-Care 01 Condition: Good Clinical Impression: Pain, dental - Discharge Information Referrals: Jerson Lyles MRI SPECIALIST [Primary Care Provider] - Additional Instructions: Take full course of antibiotics, continue to use ibuprofen as needed for baseline pain control, use hydrocodone as needed for breakthrough pain, please keep your follow-up appointment with dentistry on Thursday - Assessment/Plan Plan: Assessment Acuity = acute Site and laterality = suspicious for dental abscess tooth #16 Etiology = bacterial cause of multiple dental caries Manifestations = facial pain Location of injury = Home Lab values = none Plan Augmentin 875 by mouth twice a day 7 days, in combination hydrocodone 5/325 one tablet by mouth 3 times a day when necessary total #6 he is a dental appointment on Thursday This note was dictated using [employer] voice recognition software please call with any questions on syntax or grammar.
== END 2018-01-05 22:49 | disposition home or self-care (01) ==
LOC: JP.ED 21:15
DX: K02.9 Dental caries, unspecified (principal); K08.89 Other specified disorders of teeth and supporting structures; Z88.2 Allergy status to sulfonamides
CPT/HCPCS: 99283

== ENCOUNTER 2018-02-17 19:49 | Emergency (ER) | payer MEDICAID ==
[2018-02-17 20:39] VITALS: BP 140/84
[2018-02-17] MEDS ORDERED: Ketorolac 60 MG/2 ML SDV IM ONE (20:48)
--- NOTE | 2018-02-17 20:55 | EDM.PDOC ---
ED HPI GENERAL MEDICAL PROBLEM - General Chief Complaint: Back Pain or Injury Stated Complaint: BACK PAIN Time Seen by Provider: 02/17/18 20:36 Source of Information: Reports: Patient History Limitations: Reports: No Limitations - History of Present Illness INITIAL COMMENTS - FREE TEXT/NARRATIVE: Acute on chronic back pain: He reports has had back pain for the past 8 years, it has been worse the past few months, today he was unbearable. He had back injections in the spring which helped control the pain but now this has worn off. He plans to follow-up with his primary care provider this week. He is employed at the [employer] which make [employer], this requires a lot of bending, lifting, twisting. Currently he is on light duty. Onset: Today Duration: Getting Worse, Waxing/Waning Location: Reports: Back Quality: Reports: Burning, Same as Previous Episode, Stabbing, Throbbing Improves with: Reports: Rest Worsens with: Reports: Movement Context: Reports: Lifting Associated Symptoms: Reports: No Other Symptoms Treatments BOARD CERTIFIED ARTS THERAPIST: Reports: Other (see below) Other Treatments BOARD CERTIFIED ARTS THERAPIST: unknown - Related Data Allergies Allergy/AdvReac Type Severity Reaction Status Date / Time Sulfa (Sulfonamide Allergy Hives Verified 02/17/18 20:26 Antibiotics) Home Meds: Home Meds Acetaminophen/HYDROcodone [[place] 325-5 MG] 1 - 2 tab PO Q6H PRN 02/17/18 [ History] Cyclobenzaprine [Flexeril] 10 mg PO TID PRN 02/17/18 [History] Past Medical History - Past Health History Medical/Surgical History: Denies Medical/Surgical History HEENT History: Reports: Other (See Below) Other HEENT History: multiple broken teeth Musculoskeletal History: Reports: Back Pain, Chronic, Other (See Below) Other Musculoskeletal History: injections Psychiatric History: Reports: Anxiety Hematologic History: Reports: Other (See Below) Other Hematologic History: "high iron in my blood so I donate blood" - Infectious Disease History Infectious Disease History: Reports: Chicken Pox Social & Family History - Tobacco Use Smoking Status *Q: Current Some Day Smoker Years of Tobacco use: 20 Packs/Tins Daily: 0.2 Second Hand Smoke Exposure: No - Caffeine Use Caffeine Use: Reports: Coffee, Soda - Recreational Drug Use Recreational Drug Use: No - Living Situation & Occupation Occupation: Employed (Works at [employer] ED ROS GENERAL - Review of Systems Review Of Systems: See Below Constitutional: Reports: Other (Acute back pain) HEENT: Reports: No Symptoms Respiratory: Reports: No Symptoms Cardiovascular: Reports: No Symptoms Endocrine: Reports: No Symptoms GI/Abdominal: Reports: No Symptoms, Mucous in Stool Musculoskeletal: Reports: Back Pain, Muscle Pain, Muscle Stiffness, Other ( Muscle spasms) Skin: Reports: No Symptoms Neurological: Reports: No Symptoms Psychiatric: Reports: No Symptoms Hematologic/Lymphatic: Reports: No Symptoms Immunologic: Reports: No Symptoms ED EXAM, GENERAL - Physical Exam Exam: See Below Exam Limited By: No Limitations General Appearance: Alert, WD/WN, Mild Distress, Thin Respiratory/Chest: No Respiratory Distress Cardiovascular: No Edema GI/Abdominal: Soft, Non-Tender Back Exam: Decreased Range of Motion (Increased pain with flexion or extension and rotation of spine.), Muscle Spasm (Low back lumbar spine), Other (Increased pain to lumbar sacral spine) Extremities: Normal Inspection, Normal Range of Motion, Non-Tender, No Pedal Edema Neurological: Alert, Oriented, Abnormal Gait (Walks stiffly due to pain. Patellar reflexes equal bilateral 1+) Psychiatric: Normal Affect, Normal Mood Skin Exam: Warm, Dry, Intact, Normal Color, No Rash Lymphatic: No Adenopathy Course - Vital Signs Last Recorded V/S: Last Vital Signs Temp 37.0 C 02/17/18 20:33 Pulse 100 02/17/18 20:33 Resp 14 02/17/18 20:33 BP 140/84 02/17/18 20:33 Pulse Ox 94 L 02/17/18 20:33 - Orders/Labs/Meds Meds: Medications Discontinued Medications Generic Name Dose Route Start Last Admin Trade Name Freq PRN Reason Stop Dose Admin Ketorolac Tromethamine 60 mg 02/17/18 20:48 Toradol IM 02/17/18 20:49 ONETIME ONE - Re-Assessments/Exams Free Text/Narrative Re-Assessment/Exam: 02/17/18 21:05 Discussed with patient will give Toradol 60 mg IM, home medications [place] and Flexeril. Advised to follow-up with primary care and also given card for Dr. Olaf Linda for back evaluation. Departure - Departure Time of Disposition: 21:06 Disposition: Home, Self-Care 01 Condition: Good Clinical Impression: Acute exacerbation of chronic low back pain - Discharge Information Instructions: What You Need to Know About Chronic Back Pain Referrals: Jerson Lyles NP [Primary Care Provider] - Forms: ED Department Discharge Care Plan Goals: acute on chronic back pain -Toradol 60mg im in ER -Hydrocodone 5-325mg po every 4 to 6 hours as needed for pain -Flexeril 10 mg po every 8 hours as needed for muscle spasm. advise to rest back, avoid any lifting, bending or twisting follow up with Primary Care for recheck this week given a referral for Orthopedics return to clinic or er if not improved or symptoms worsen - Problem List & Annotations (1) Acute exacerbation of chronic low back pain SNOMED Code(s): 609291303 Code(s): M54.5 - LOW BACK PAIN; G89.29 - OTHER CHRONIC PAIN Status: Acute Priority: High Current Visit: Yes - Problem List Review Problem List Initiated/Reviewed/Updated: Yes - Assessment/Plan Plan: acute on chronic back pain -Toradol 60mg im in ER -Hydrocodone 5-325mg po every 4 to 6 hours as needed for pain -Flexeril 10 mg po every 8 hours as needed for muscle spasm. advise to rest back, avoid any lifting, bending or twisting follow up with Primary Care for recheck this week given a referral for Orthopedics return to clinic or er if not improved or symptoms worsen
== END 2018-02-17 21:13 | disposition home or self-care (01) ==
LOC: JP.ED 19:49
DX: G89.29 Other chronic pain (principal); M54.5 Low back pain; F17.210 Nicotine dependence, cigarettes, uncomplicated; F41.9 Anxiety disorder, unspecified; Z79.899 Other long term (current) drug therapy; Z88.2 Allergy status to sulfonamides
CPT/HCPCS: 96372; 99283; J1885

== ENCOUNTER 2018-02-23 14:55 | Emergency (ER) | payer MEDICAID ==
[2018-02-23 17:48] VITALS: BP 137/75
[2018-02-23] MEDS ORDERED: Ketorolac 30 MG/ML SDV IM ONE (18:25)
--- NOTE | 2018-02-23 18:33 | EDM.PDOC ---
ED HPI GENERAL MEDICAL PROBLEM - General Chief Complaint: Back Pain or Injury Stated Complaint: PAIN IN BACK Time Seen by Provider: 02/23/18 18:13 Source of Information: Reports: Patient, Old Records, RN Notes Reviewed History Limitations: Reports: No Limitations - History of Present Illness INITIAL COMMENTS - FREE TEXT/NARRATIVE: 37-year-old male complaining of exacerbation of back pain since 2 days ago. 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 Has missed 3 days of work Last few days Pain is primarily left low back where it usually is although occasionally has some in the lower right back. Pain shoots down the leg to the foot and the toes Numbness particularly in the left little too smallest toes Walks with a bit of a limp No bowel or bladder incontinence No fever Did take some leftover hydrocodone and some Flexeril. He is requesting injection of Toradol and a renewal of hydrocodone Has contacted his primary physician and is attempting to arrange for further epidural injections which have been helpful for him in the past last MRI was 1-1/2 years ago Lower Back Pain Score (Numeric/FACES): 10 - Related Data Allergies Allergy/AdvReac Type Severity Reaction Status Date / Time Sulfa (Sulfonamide Allergy Hives Verified 02/17/18 20:26 Antibiotics) Home Meds: Home Meds Acetaminophen/HYDROcodone [[place] 325-5 MG] 1 - 2 tab PO Q6H PRN 02/17/18 [ History] Cyclobenzaprine [Flexeril] 10 mg PO TID PRN 02/17/18 [History] Hydrocodone/Acetaminophen [Hydrocodon-Acetaminophen 5-325] 1 - 2 each PO Q4HR PRN #8 tablet 02/23/18 [Rx] Past Medical History - Past Health History Medical/Surgical History: Denies Medical/Surgical History HEENT History: Reports: Other (See Below) Other HEENT History: multiple broken teeth Musculoskeletal History: Reports: Back Pain, Chronic, Other (See Below) Other Musculoskeletal History: injections. degenerative disk disease Psychiatric History: Reports: Anxiety Hematologic History: Reports: Other (See Below) Other Hematologic History: "high iron in my blood so I donate blood" - Infectious Disease History Infectious Disease History: Reports: Chicken Pox Social & Family History - Tobacco Use Smoking Status *Q: Light Tobacco Smoker Years of Tobacco use: 15 Packs/Tins Daily: 0.2 - Caffeine Use Caffeine Use: Reports: Coffee - Recreational Drug Use Recreational Drug Use: No - Living Situation & Occupation Occupation: Employed (Works at [employer].) ED ROS GENERAL - Review of Systems Review Of Systems: See Below Constitutional: Reports: No Symptoms HEENT: Reports: No Symptoms Respiratory: Reports: No Symptoms Cardiovascular: Reports: No Symptoms GI/Abdominal: Reports: No Symptoms : Reports: No Symptoms Musculoskeletal: Reports: Back Pain Skin: Reports: No Symptoms Neurological: Reports: Numbness, Paresthesia, Difficulty Walking Psychiatric: Reports: No Symptoms ED EXAM,LOWER BACK PAIN/INJURY - Physical Exam Exam: See Below Exam Limited By: No Limitations General Appearance: Alert, Mild Distress, Other (Normal vital signs, appears healthy) Eye Exam: Bilateral Eye: Normal Inspection Throat/Mouth: Normal Inspection Head: Atraumatic, Normocephalic Respiratory/Chest: No Respiratory Distress, No Accessory Muscle Use Back Exam: Normal Inspection, Decreased Range of Motion, Paraspinal Tenderness. No: Vertebral Tenderness Extremities: Normal Inspection, Normal Capillary Refill Neurological: Alert, No Motor/Sensory Deficits, Difficulty Walking Psychiatric: Normal Affect, Normal Mood Skin Exam: Warm, Dry, Intact, No Rash Course - Vital Signs Last Recorded V/S: Last Vital Signs Temp 36.2 C 02/23/18 18:00 Pulse 68 02/23/18 18:00 Resp 18 02/23/18 18:00 BP 137/75 02/23/18 18:00 Pulse Ox 99 02/23/18 18:00 - Orders/Labs/Meds Meds: Medications Discontinued Medications Generic Name Dose Route Start Last Admin Trade Name Jorgeq PRN Reason Stop Dose Admin Ketorolac Tromethamine 30 mg 02/23/18 18:25 02/23/18 18:32 Toradol IM 02/23/18 18:26 30 mg ONETIME ONE Administration - Re-Assessments/Exams Free Text/Narrative Re-Assessment/Exam: 02/23/18 18:32 37-year-old male with no acute emergent emergent condition However he does have a flareOf chronic back pain Toradol 30 mg IM The tablets hydrocodone/acetaminophen 5/325 He does have cyclobenzaprine Follow-up primary care Departure - Departure Time of Disposition: 18:42 Disposition: Home, Self-Care 01 Condition: Fair Clinical Impression: Acute exacerbation of chronic low back pain - Discharge Information Prescriptions: Hydrocodone/Acetaminophen [Hydrocodon-Acetaminophen 5-325] 1 - 2 each PO Q4HR PRN #8 tablet PRN Reason: Moderate to severe pain Instructions: Chronic Back Pain Referrals: PCP,None [Primary Care Provider] - Forms: ED Department Discharge Additional Instructions: Continue with your primary care physician If you need renewals of medication please contact your primary care physician or the specialists the treat her back Return to emergency if you have fever, vomiting, loss of bladder or bowel control, unable to move either leg or walk.
== END 2018-02-23 18:39 | disposition home or self-care (01) ==
LOC: JP.ED 14:55
DX: M54.5 Low back pain (principal); G89.29 Other chronic pain; F17.210 Nicotine dependence, cigarettes, uncomplicated; Z88.2 Allergy status to sulfonamides; Z79.899 Other long term (current) drug therapy
CPT/HCPCS: 96372; 99283; J1885

== ENCOUNTER 2018-03-10 17:31 | Emergency (ER) | payer MEDICAID ==
[2018-03-10 18:25] VITALS: BP 136/77
[2018-03-10] MEDS ORDERED: Ketorolac 60 MG/2 ML SDV IM ONE (19:08)
--- NOTE | 2018-03-10 19:18 | EDM.PDOC ---
ED HPI GENERAL MEDICAL PROBLEM - General Chief Complaint: Back Pain or Injury Stated Complaint: LOW BACK PAIN Time Seen by Provider: 03/10/18 19:00 Source of Information: Reports: Patient, Old Records, RN History Limitations: Reports: No Limitations - History of Present Illness INITIAL COMMENTS - FREE TEXT/NARRATIVE: 37 yo male with chronic low back pain twisted at work today and experienced a worsening of his pain associated with a pop. Pain is more intensely going down his L leg. No incontinence. Would like a Toradol shot and is almost out of his Flexeril. Has an appt for an epidural for this next Thursday. Onset: Today Onset Date: 03/10/18 Duration: Hour(s): Location: Reports: Back, Radiates to (L leg) Quality: Reports: Burning Severity: Moderate Improves with: Reports: Rest Worsens with: Reports: Movement Context: Reports: Other (chronic low back pain) Associated Symptoms: Reports: No Other Symptoms Treatments PHOTOGRAPHIC PROCESSOR: Reports: Other (see below) (Usual medications) left side back Pain Score (Numeric/FACES): 10 - Related Data Allergies Allergy/AdvReac Type Severity Reaction Status Date / Time Sulfa (Sulfonamide Allergy Hives Verified 03/10/18 18:22 Antibiotics) Home Meds: Home Meds Acetaminophen/HYDROcodone [[place] 325-5 MG] 1 - 2 tab PO Q6H PRN 02/17/18 [ History] Cyclobenzaprine [Flexeril] 10 mg PO TID PRN 02/17/18 [History] Hydrocodone/Acetaminophen [Hydrocodon-Acetaminophen 5-325] 1 - 2 each PO Q4HR PRN #8 tablet 02/23/18 [Rx] Cyclobenzaprine [Flexeril] 10 mg PO TID PRN #10 tab 03/10/18 [Rx] Gabapentin [Neurontin] 300 mg PO BEDTIME PRN #7 capsule 03/10/18 [Rx] Past Medical History - Past Health History Medical/Surgical History: Denies Medical/Surgical History HEENT History: Reports: Other (See Below) Other HEENT History: multiple broken teeth Musculoskeletal History: Reports: Back Pain, Chronic, Other (See Below) Other Musculoskeletal History: injections. degenerative disk disease Psychiatric History: Reports: Anxiety Hematologic History: Reports: Other (See Below) Other Hematologic History: "high iron in my blood so I donate blood", hemachromatosis - Infectious Disease History Infectious Disease History: Reports: Chicken Pox Social & Family History - Tobacco Use Smoking Status *Q: Current Every Day Smoker Years of Tobacco use: 18 Packs/Tins Daily: 0.5 - Caffeine Use Caffeine Use: Reports: Coffee - Recreational Drug Use Recreational Drug Use: No - Living Situation & Occupation Occupation: Employed (Works at [employer].) ED ROS GENERAL - Review of Systems Review Of Systems: See Below Constitutional: Reports: No Symptoms HEENT: Reports: No Symptoms Respiratory: Reports: No Symptoms Cardiovascular: Reports: No Symptoms GI/Abdominal: Reports: No Symptoms : Reports: No Symptoms Musculoskeletal: Reports: Back Pain Skin: Reports: No Symptoms Neurological: Reports: Numbness (L leg) ED EXAM,LOWER BACK PAIN/INJURY - Physical Exam Exam: See Below Exam Limited By: No Limitations General Appearance: Alert, WD/WN, No Apparent Distress, Thin Eye Exam: Bilateral Eye: Normal Inspection Ears: Normal External Exam, Normal Canal, Hearing Grossly Normal Nose: Normal Inspection, Normal Mucosa, No Blood Throat/Mouth: Normal Inspection, Normal Lips, Normal Voice, No Airway Compromise Head: Atraumatic, Normocephalic Neck: Normal Inspection, Supple, Non-Tender Respiratory/Chest: No Respiratory Distress, Lungs Clear, Normal Breath Sounds, No Accessory Muscle Use Cardiovascular: Regular Rate, Rhythm Back Exam: Normal Inspection, Decreased Range of Motion. No: Full Range of Motion, CVA Tenderness (R), CVA Tenderness (L), Muscle Spasm, Vertebral Tenderness Extremities: Normal Inspection, Normal Range of Motion, Non-Tender, No Pedal Edema Neurological: Alert, Normal Mood/Affect, CN II-XII Intact, Oriented x 3, Other ( DTR' equal L and R, subjective numbness L leg. No weakness. ) Psychiatric: Normal Affect, Normal Mood Skin Exam: Warm, Dry, Intact, Normal Color, No Rash Lymphatic: No Adenopathy Course - Vital Signs Last Recorded V/S: Last Vital Signs Temp 35.6 C 03/10/18 18:08 Pulse 69 03/10/18 18:08 Resp 16 03/10/18 18:08 BP 136/77 03/10/18 18:08 Pulse Ox 95 03/10/18 18:08 - Orders/Labs/Meds Meds: Medications Discontinued Medications Generic Name Dose Route Start Last Admin Trade Name Chris PRN Reason Stop Dose Admin Ketorolac Tromethamine 60 mg 03/10/18 19:08 Toradol IM 03/10/18 19:09 ONETIME ONE Departure - Departure Time of Disposition: 19:19 Disposition: Home, Self-Care 01 Condition: Good Clinical Impression: Acute exacerbation of chronic low back pain - Discharge Information Prescriptions: Cyclobenzaprine [Flexeril] 10 mg PO TID PRN #10 tab PRN Reason: Pain Gabapentin [Neurontin] 300 mg PO BEDTIME PRN #7 capsule PRN Reason: Pain Referrals: Jerson Lyles [facility] [Primary Care Provider] - Forms: ED Department Discharge, ED Return to Work/School Form Additional Instructions: No lifting, bending or twisting. Use your usual meds as needed. Try substituting gabapentin for your night time Flexeril. Recheck with your doctor before the weekend. Keep Thursday's appt for epidural.
== END 2018-03-10 19:25 | disposition home or self-care (01) ==
LOC: JP.ED 17:31
DX: M54.5 Low back pain (principal); G89.29 Other chronic pain; F17.210 Nicotine dependence, cigarettes, uncomplicated; Z88.2 Allergy status to sulfonamides
CPT/HCPCS: 96372; 99283; J1885

== ENCOUNTER 2018-04-17 17:34 | Emergency (ER) | payer MEDICAID ==
[2018-04-17 17:49] VITALS: BP 146/76
--- NOTE | 2018-04-17 17:57 | EDM.PDOC ---
ED HPI GENERAL MEDICAL PROBLEM - General Chief Complaint: ENT Problem Stated Complaint: TEETH Time Seen by Provider: 04/17/18 17:52 Source of Information: Reports: Patient, RN History Limitations: Reports: No Limitations - History of Present Illness INITIAL COMMENTS - FREE TEXT/NARRATIVE: 37 yo male with dental pain for 2+ days, getting worse. Has some purulent drainage. No fever. Has not called a dentist yet. 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: Reports: Other (see below) (none) - Related Data Allergies Allergy/AdvReac Type Severity Reaction Status Date / Time Sulfa (Sulfonamide Allergy Hives Verified 04/17/18 17:55 Antibiotics) Home Meds: Home Meds Acetaminophen/HYDROcodone [[place] 325-5 MG] 1 - 2 tab PO Q6H PRN 02/17/18 [ History] Cyclobenzaprine [Flexeril] 10 mg PO TID PRN 02/17/18 [History] Hydrocodone/Acetaminophen [Hydrocodon-Acetaminophen 5-325] 1 - 2 each PO Q4HR PRN #8 tablet 02/23/18 [Rx] Cyclobenzaprine [Flexeril] 10 mg PO TID PRN #10 tab 03/10/18 [Rx] Gabapentin [Neurontin] 300 mg PO BEDTIME PRN #7 capsule 03/10/18 [Rx] Past Medical History - Past Health History Medical/Surgical History: Denies Medical/Surgical History HEENT History: Reports: Other (See Below) Other HEENT History: multiple broken teeth Musculoskeletal History: Reports: Back Pain, Chronic, Other (See Below) Other Musculoskeletal History: injections. degenerative disk disease Psychiatric History: Reports: Anxiety Hematologic History: Reports: Other (See Below) Other Hematologic History: "high iron in my blood so I donate blood", hemachromatosis - Infectious Disease History Infectious Disease History: Reports: Chicken Pox Social & Family History - Caffeine Use Caffeine Use: Reports: Coffee - Living Situation & Occupation Occupation: Employed (Works at [employer].) ED ROS ENT - Review of Systems Review Of Systems: See Below Constitutional: Reports: No Symptoms HEENT: Reports: Dental Pain Respiratory: Reports: No Symptoms Cardiovascular: Reports: No Symptoms GI/Abdominal: Reports: No Symptoms Skin: Reports: No Symptoms Neurological: Reports: No Symptoms ED EXAM, ENT - Physical Exam Exam: See Below Exam Limited By: No Limitations General Appearance: Alert, WD/WN, No Apparent Distress Eye Exam: Bilateral Eye: Normal Inspection Ears: Normal External Exam, Normal Canal, Hearing Grossly Normal Nose: Normal Inspection, Normal Mucousa, No Blood Mouth/Throat: Normal Gums, Normal Lips, Dental Pain, Dental Tenderness. No: Hoarse Voice, Muffled Voice, Tongue Swelling Head: Atraumatic, Normocephalic Neck: Normal Inspection, Supple, Non-Tender Respiratory/Chest: No Respiratory Distress Cardiovascular: Regular Rate, Rhythm Neurological: Alert, Oriented, CN II-XII Intact, Normal Cognition, No Motor/ Sensory Deficits Psychiatric: Normal Affect, Normal Mood Skin: Warm, Dry, Intact, Normal Color, No Rash Course - Vital Signs Last Recorded V/S: Last Vital Signs Temp 36.1 C 04/17/18 17:47 Pulse 85 04/17/18 17:47 Resp 16 04/17/18 17:47 BP 146/76 H 04/17/18 17:47 Pulse Ox 98 04/17/18 17:47 Departure - Departure Time of Disposition: 17:55 Disposition: Home, Self-Care 01 Condition: Good Clinical Impression: Pain, dental - Discharge Information *PRESCRIPTION DRUG MONITORING PROGRAM REVIEWED*: No *COPY OF PRESCRIPTION DRUG MONITORING REPORT IN PATIENT JAVIER: No Referrals: Jerson Lyles NP [Primary Care Provider] - Additional Instructions: Take penicillin as directed. Take ibuprofen 400 mg every 6 hrs with food. Add either acetaminophen or ibuprofen as needed for pain relief. See a dentist tova. See you family doctor if you need further care before seeing a dentist.
== END 2018-04-17 18:08 | disposition home or self-care (01) ==
LOC: JP.ED 17:34
DX: K08.89 Other specified disorders of teeth and supporting structures (principal); Z88.2 Allergy status to sulfonamides
CPT/HCPCS: 99283

== ENCOUNTER 2018-06-06 15:30 | Emergency (ER) | payer MEDICAID ==
[2018-06-06 15:45] VITALS: BP 144/85
--- NOTE | 2018-06-06 16:52 | EDM.PDOC ---
ED HPI GENERAL MEDICAL PROBLEM - General Chief Complaint: Lower Extremity Injury/Pain Stated Complaint: SCIATIC PAIN Time Seen by Provider: 06/06/18 15:48 Source of Information: Reports: Patient History Limitations: Reports: No Limitations - History of Present Illness INITIAL COMMENTS - FREE TEXT/NARRATIVE: 2 days acute low back pain; this is a 37 year old male present to ER with his Girlfriend, reports he was on vacation in [place], bow hunting in the mountains , started to have extreme back pain, had to be taken down the mountain by his friends. He stayed with his Mother in [place], then came back to [place]. He reports history of acute back pain, no changes in bowel or bladder, no fever or chills. last spinal epidural February 2018, has appointment with [facility] on Thursday. Left Leg Pain Score (Numeric/FACES): 10 - Related Data Allergies Allergy/AdvReac Type Severity Reaction Status Date / Time Sulfa (Sulfonamide Allergy Hives Verified 06/06/18 15:37 Antibiotics) Home Meds: Home Meds Cyclobenzaprine [Flexeril] 10 mg PO TID PRN 02/17/18 [History] Disulfiram 250 mg PO DAILY 04/17/18 [History] Acetaminophen/HYDROcodone [[place] 325-5 MG] 1 tab PO Q4HR PRN 06/06/18 [History] Past Medical History - Past Health History Medical/Surgical History: Denies Medical/Surgical History HEENT History: Reports: Other (See Below) Other HEENT History: multiple broken teeth Musculoskeletal History: Reports: Back Pain, Chronic, Other (See Below) Other Musculoskeletal History: injections. degenerative disk disease Psychiatric History: Reports: Addiction, Anxiety Hematologic History: Reports: Other (See Below) Other Hematologic History: "high iron in my blood so I donate blood", hemachromatosis - Infectious Disease History Infectious Disease History: Reports: Chicken Pox - Past Surgical History HEENT Surgical History: Reports: Tonsillectomy Musculoskeletal Surgical History: Reports: None Social & Family History - Tobacco Use Smoking Status *Q: Current Every Day Smoker Years of Tobacco use: 10 Packs/Tins Daily: 0.4 Used Tobacco, but Quit: No Second Hand Smoke Exposure: No - Caffeine Use Caffeine Use: Reports: Coffee - Recreational Drug Use Recreational Drug Use: No - Living Situation & Occupation Occupation: Employed (Works at [employer].) Review of Systems - Review of Systems Review Of Systems: See Below Constitutional: Reports: No Symptoms Eyes: Reports: No Symptoms Ears: Reports: No Symptoms Nose: Reports: No Symptoms Mouth/Throat: Reports: No Symptoms Respiratory: Reports: No Symptoms Cardiovascular: Reports: No Symptoms GI/Abdominal: Reports: No Symptoms Genitourinary: Reports: No Symptoms Musculoskeletal: Reports: Back Pain, Leg Pain (left), Muscle Pain Skin: Reports: No Symptoms Neurological: Reports: No Symptoms Psychiatric: Reports: No Symptoms ED EXAM, GENERAL - Physical Exam Exam: See Below Exam Limited By: No Limitations General Appearance: Alert, WD/WN, Moderate Distress Eye Exam: Bilateral Eye: Normal Inspection Ears: Normal External Exam Ear Exam: Bilateral Ear: Auricle Normal, Canal Normal, TM normal Nose: Normal Inspection, Normal Mucosa, No Blood Throat/Mouth: Normal Inspection, Normal Lips, Normal Teeth, Normal Gums, Normal Oropharynx, Normal Voice, No Airway Compromise Head: Atraumatic, Normocephalic Neck: Normal Inspection, Supple, Non-Tender, Full Range of Motion Respiratory/Chest: No Respiratory Distress, Lungs Clear, Normal Breath Sounds, No Accessory Muscle Use, Chest Non-Tender Cardiovascular: Normal Peripheral Pulses, Regular Rate, Rhythm, No Edema, No Gallop, No JVD, No Murmur, No Rub GI/Abdominal: Normal Bowel Sounds, Soft, Non-Tender, No Organomegaly, No Distention, No Abnormal Bruit, No Mass Back Exam: Muscle Spasm (low ), Paraspinal Tenderness Extremities: Normal Inspection, Normal Capillary Refill, Leg Pain (left leg pain straight leg lift.) Neurological: Alert, Oriented, CN II-XII Intact, Normal Cognition, Normal Gait, Normal Reflexes, No Motor/Sensory Deficits Psychiatric: Normal Affect, Normal Mood Lymphatic: No Adenopathy Course - Vital Signs Last Recorded V/S: Last Vital Signs Temp 35.9 C 06/06/18 15:45 Pulse 93 06/06/18 15:45 Resp 16 06/06/18 15:45 BP 144/85 H 06/06/18 15:45 Pulse Ox 100 06/06/18 15:45 Departure - Departure Time of Disposition: 16:55 Disposition: Home, Self-Care 01 Condition: Good Clinical Impression: Acute exacerbation of chronic low back pain - Discharge Information *PRESCRIPTION DRUG MONITORING PROGRAM REVIEWED*: Yes *COPY OF PRESCRIPTION DRUG MONITORING REPORT IN PATIENT JAVIER: No Instructions: Muscle Strain, [id number] Referrals: PCP,None [Primary Care Provider] - Forms: ED Department Discharge Care Plan Goals: acute low back pain -flexeril 10 mg one every 8 hours as needed for muscle spasms#15 -Blue Mountain 5-325mg take one every 4 to 6 hours as needed for pain #10 -rest, no bending, lifting or twisting of back. -advised to call his Primary Care Provider in am for follow up care. return to Clinic or ER if not improved or symptoms worsen. - Problem List & Annotations (1) Acute exacerbation of chronic low back pain SNOMED Code(s): 224718304 Code(s): M54.5 - LOW BACK PAIN; G89.29 - OTHER CHRONIC PAIN Status: Acute Priority: High - Problem List Review Problem List Initiated/Reviewed/Updated: Yes - Assessment/Plan Plan: acute low back pain -flexeril 10 mg one every 8 hours as needed for muscle spasms#15 -[place] 5-325mg take one every 4 to 6 hours as needed for pain #10 -rest, no bending, lifting or twisting of back. -advised to call his Primary Care Provider in am for follow up care. return to Clinic or ER if not improved or symptoms worsen.
== END 2018-06-06 16:57 | disposition home or self-care (01) ==
LOC: JP.ED 15:30
DX: G89.29 Other chronic pain (principal); M54.5 Low back pain; Z88.2 Allergy status to sulfonamides; Z79.899 Other long term (current) drug therapy; F17.210 Nicotine dependence, cigarettes, uncomplicated
CPT/HCPCS: 99283

== ENCOUNTER 2018-09-15 14:47 | Emergency (ER) | payer MEDICAID ==
--- NOTE | 2018-09-15 15:50 | EDM.PDOC ---
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 He became dizzy and he did fall to the ground. He is on probatiopn and is not to be using,. Onset: Today, Other (pt was brought to the hosp and by that time he was feeling better. ) Duration: Hour(s): Location: Reports: Head Associated Symptoms: Reports: Other (pt was dizzy. ) - Related Data Allergies Allergy/AdvReac Type Severity Reaction Status Date / Time Sulfa (Sulfonamide Allergy Hives Verified 08/06/18 10:30 Antibiotics) Home Meds: Home Meds Naproxen [Naprosyn] 500 mg PO ASDIRECTED 06/11/18 [History] Past Medical History - Past Health History Medical/Surgical History: Denies Medical/Surgical History HEENT History: Reports: Other (See Below) Other HEENT History: multiple broken teeth Musculoskeletal History: Reports: Back Pain, Chronic, Other (See Below) Other Musculoskeletal History: epidural injections. degenerative disk disease Psychiatric History: Reports: Addiction, Anxiety Hematologic History: Reports: Other (See Below) Other Hematologic History: hemachromatosis - Infectious Disease History Infectious Disease History: Reports: Chicken Pox - Past Surgical History HEENT Surgical History: Reports: Adenoidectomy, Tonsillectomy Social & Family History - Family History Family Medical History: Noncontributory - Caffeine Use Caffeine Use: Reports: Coffee, Soda - Living Situation & Occupation Occupation: Employed (Works at [employer].) ED ROS GENERAL - Review of Systems Review Of Systems: See Below Constitutional: Reports: Weakness, Other (pt was found 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 ) HEENT: Reports: No Symptoms Respiratory: Reports: Shortness of Breath Cardiovascular: Reports: No Symptoms Endocrine: Reports: No Symptoms GI/Abdominal: Reports: No Symptoms Neurological: Reports: Other (pt was dizzy. ) ED EXAM, GENERAL - Physical Exam Exam: See Below Free Text/Narrative:: pt was acting back to normal on arrival here. He was given the option wwhether he felt like he needed to be seen or not and he felt like he was doing ok. He is on probation and of course he broke probation Exam Limited By: No Limitations General Appearance: Alert, No Apparent Distress, Other (pt was not examined as he choose not to be seen) Departure - Departure Time of Disposition: 15:50 Disposition: Home, Self-Care 01 Condition: Good Clinical Impression: Huffing Referrals: PCP,None [Primary Care Provider] - Care Plan Goals: pt [facility] be [facility] if problems.
== END 2018-09-15 16:07 | disposition home or self-care (01) ==
LOC: JP.ED 14:47
DX: F18.90 Inhalant use, unspecified, uncomplicated (principal); Z88.2 Allergy status to sulfonamides
CPT/HCPCS: 99284

== ENCOUNTER 2018-10-28 14:15 | Emergency (ER) | payer MEDICAID ==
[2018-10-28 14:33] VITALS: BP 178/73
--- NOTE | 2018-10-28 15:31 | EDM.PDOC ---
ED HPI GENERAL MEDICAL PROBLEM - General Chief Complaint: Upper Extremity Injury/Pain Stated Complaint: LEFT HAND INJURY Time Seen by Provider: 10/28/18 14:35 Source of Information: Reports: Patient History Limitations: Reports: No Limitations - History of Present Illness INITIAL COMMENTS - FREE TEXT/NARRATIVE: pt was up on a roof shoveling and he fell and he jammed the 3rd and 4th left fingers. The 3rd at this point is particulaly swollen uncomfortable. Onset: Today, Other (happened about 1 hr ago. ) Duration: Hour(s): Location: Reports: Upper Extremity, Left Associated Symptoms: Reports: No Other Symptoms Left Middle Finger-Middle Pain Score (Numeric/FACES): 8 - Related Data Allergies Allergy/AdvReac Type Severity Reaction Status Date / Time Sulfa (Sulfonamide Allergy Hives Verified 10/28/18 14:23 Antibiotics) Home Meds: Home Meds ARIPiprazole [Abilify] 5 mg PO DAILY 10/28/18 [History] Past Medical History - Past Health History Medical/Surgical History: Denies Medical/Surgical History HEENT History: Reports: Other (See Below) Other HEENT History: multiple broken teeth Musculoskeletal History: Reports: Back Pain, Chronic, Other (See Below) Other Musculoskeletal History: epidural injections. degenerative disk disease Psychiatric History: Reports: Addiction, Anxiety Hematologic History: Reports: Other (See Below) Other Hematologic History: hemachromatosis - Infectious Disease History Infectious Disease History: Reports: Chicken Pox - Past Surgical History HEENT Surgical History: Reports: Adenoidectomy, Tonsillectomy Musculoskeletal Surgical History: Reports: None Social & Family History - Family History Family Medical History: Noncontributory - Tobacco Use Smoking Status *Q: Current Every Day Smoker Years of Tobacco use: 25 Packs/Tins Daily: 0.5 Used Tobacco, but Quit: No Second Hand Smoke Exposure: Yes - Caffeine Use Caffeine Use: Reports: Coffee - Recreational Drug Use Recreational Drug Use: Yes Drug Use in Last 12 Months: Yes - Living Situation & Occupation Occupation: Employed (Works at [employer].) Review of Systems - Review of Systems Review Of Systems: See Below Constitutional: Reports: No Symptoms Eyes: Reports: No Symptoms Ears: Reports: No Symptoms Nose: Reports: No Symptoms Mouth/Throat: Reports: No Symptoms Respiratory: Reports: No Symptoms Cardiovascular: Reports: No Symptoms GI/Abdominal: Reports: No Symptoms Genitourinary: Reports: No Symptoms Musculoskeletal: Reports: Other (pain in left hand) Skin: Reports: No Symptoms ED EXAM, GENERAL - Physical Exam Exam: See Below Free Text/Narrative:: Pt arrived with pain in the 3rd and 4th fingers on the left. He was shoveling a roof and he fell and he jammed the fingers. Exam Limited By: No Limitations General Appearance: Alert, Mild Distress Extremities: Other ( Pt has swellin in the mid pp joint of the 3rd finger on the left. ) Neurological: Alert, Oriented, Normal Cognition Course - Vital Signs Last Recorded V/S: Last Vital Signs Temp 35.9 C 10/28/18 14:33 Pulse 104 H 10/28/18 14:33 Resp 16 10/28/18 14:33 BP 178/73 H 10/28/18 14:33 Pulse Ox 95 10/28/18 14:33 - Orders/Labs/Meds Meds: Medications Discontinued Medications Generic Name Dose Route Start Last Admin Trade Name Chris PRN Reason Stop Dose Admin Ibuprofen 600 mg 10/28/18 15:30 10/28/18 15:34 Motrin PO 10/28/18 15:31 600 mg ONETIME ONE Administration - Re-Assessments/Exams Free Text/Narrative Re-Assessment/Exam: 10/28/18 16:29 no fractures were seen. Departure - Departure Time of Disposition: 15:30 Disposition: Home, Self-Care 01 Condition: Fair Clinical Impression: Sprain of left middle finger - Discharge Information Instructions: Finger Sprain, Adult, [id number] Referrals: Jerson Lyles [employer]PERINTENDENT [employer]POSAL [Primary Care Provider] - Forms: ED Department Discharge Care Plan Goals: splint for comfort, cool pack, motrin 600mg q6h as needed for pain.
[2018-10-28] MEDS: Ibuprofen 600 MG Tab PO ONE (15:34)
--- NOTE | 2018-10-28 15:56 | CRLCR ---
Indication: Pain after injury. Technique: Three views of the left fingers Comparison: None Findings: Bones are in appropriate alignment. Joint spaces are preserved. No fractures identified. Impression: No fracture or dislocation. Dictated by Dg Gale MD @ Oct 28 2018 3:44PM Signed by Dr. Dg Gale @ Oct 28 2018 3:54PM
--- NOTE | 2018-10-28 16:02 | CRLCR ---
Indication: Jammed fingers Technique: Three views left ring finger Comparison: None Findings: Bones: Alignment is normal. No fractures or bone lesions. Joint spaces: Unremarkable. Soft tissues: Unremarkable. Impression: No acute or significant findings. Dictated by Ben Snell MD @ Oct 28 2018 3:49PM Signed by Dr. Ben Snell @ Oct 28 2018 4:01PM
== END 2018-10-28 15:30 | disposition home or self-care (01) ==
LOC: JP.ED 14:15
DX: S63.613A Unspecified sprain of left middle finger, initial encounter (principal); F41.9 Anxiety disorder, unspecified; F17.210 Nicotine dependence, cigarettes, uncomplicated; Z88.2 Allergy status to sulfonamides; Z79.899 Other long term (current) drug therapy; W19.XXXA Unspecified fall, initial encounter
CPT/HCPCS: 73140; 99283; A9270

== ENCOUNTER 2018-11-02 18:35 | Emergency (ER) | payer MEDICAID ==
[2018-11-02 19:24] VITALS: BP 186/83
[2018-11-02] MEDS ORDERED: HYDROmorphone 1 MG/ML Syringe IM ONE (19:27)
--- NOTE | 2018-11-02 19:34 | EDM.PDOC ---
ED HPI GENERAL MEDICAL PROBLEM - General Chief Complaint: Back Pain or Injury Stated Complaint: BACK PAIN Time Seen by Provider: 11/02/18 19:15 Source of Information: Reports: Patient, Old Records History Limitations: Reports: No Limitations - History of Present Illness INITIAL COMMENTS - FREE TEXT/NARRATIVE: 38 yo male being followed for a known lumbar disc herniation presents with worsening of the same. States he was apparently working out of town and sleeping on a strange bed for nearly a month and this plus doing more physical work than he was used to aggravated his back problem. No incontinence. Is taking Flexeril, ibuprofen, and acetaminophen without relief. Has an appt for the afternoon babysitter tomorrow for another epidural injection that usually gives him good relief. Walked here with his son from 2 blocks away where he lives. Pain is exactly like pain he has had in the past when he gets a flare up. 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, Other (see below) (Flexeril) Back Pain Score (Numeric/FACES): 10 - Related Data Allergies Allergy/AdvReac Type Severity Reaction Status Date / Time Sulfa (Sulfonamide Allergy Hives Verified 11/02/18 19:24 Antibiotics) Home Meds: Home Meds ARIPiprazole [Abilify] 5 mg PO DAILY 10/28/18 [History] Cyclobenzaprine [Flexeril] 10 mg PO TID 11/02/18 [History] Hydrocodone/Acetaminophen [Hydrocodon-Acetaminophen 5-300] 1 each PO Q4HR PRN [History] Omeprazole 20 mg PO DAILY 11/02/18 [History] Past Medical History - Past Health History Medical/Surgical History: Denies Medical/Surgical History HEENT History: Reports: Other (See Below) Other HEENT History: multiple broken teeth Musculoskeletal History: Reports: Back Pain, Chronic, Other (See Below) Other Musculoskeletal History: epidural injections. degenerative disk disease Psychiatric History: Reports: Addiction, Anxiety Hematologic History: Reports: Other (See Below) Other Hematologic History: hemachromatosis - Infectious Disease History Infectious Disease History: Reports: Chicken Pox - Past Surgical History HEENT Surgical History: Reports: Adenoidectomy, Tonsillectomy Musculoskeletal Surgical History: Reports: None Social & Family History - Family History Family Medical History: Noncontributory - Tobacco Use Smoking Status *Q: Current Every Day Smoker Years of Tobacco use: 20 Packs/Tins Daily: 0.3 - Caffeine Use Caffeine Use: Reports: Tea - Recreational Drug Use Recreational Drug Use: No - Living Situation & Occupation Occupation: Employed (Works at [employer]) ED ROS GENERAL - Review of Systems Review Of Systems: See Below Constitutional: Reports: No Symptoms HEENT: Reports: No Symptoms Respiratory: Reports: No Symptoms Cardiovascular: Reports: No Symptoms Endocrine: Reports: No Symptoms GI/Abdominal: Reports: No Symptoms : Reports: No Symptoms Musculoskeletal: Reports: Back Pain (low back on left side) Skin: Reports: No Symptoms Neurological: Reports: Other (pain radiates down the left leg) ED EXAM,LOWER BACK PAIN/INJURY - Physical Exam Exam: See Below Exam Limited By: No Limitations General Appearance: Alert, WD/WN, Mild Distress Eye Exam: Bilateral Eye: Normal Inspection Ears: Normal External Exam, Normal Canal, Hearing Grossly Normal Nose: Normal Inspection, No Blood Throat/Mouth: Normal Voice, No Airway Compromise Head: Atraumatic, Normocephalic Neck: Normal Inspection Respiratory/Chest: No Respiratory Distress, Lungs Clear, Normal Breath Sounds, No Accessory Muscle Use Cardiovascular: Regular Rate, Rhythm, No Edema Back Exam: Decreased Range of Motion, Paraspinal Tenderness (low lumbar level on left. Sitting leaning to the right on the cart for relief. ). No: Full Range of Motion, CVA Tenderness (R), CVA Tenderness (L) Extremities: Normal Inspection, Normal Range of Motion, Non-Tender, No Pedal Edema Neurological: Alert, Normal Mood/Affect, CN II-XII Intact, No Motor/Sensory Deficits, Oriented x 3 Psychiatric: Normal Affect, Normal Mood Skin Exam: Warm, Dry, Intact, Normal Color, No Rash Course - Vital Signs Last Recorded V/S: Last Vital Signs Temp 36.8 C 11/02/18 19:18 Pulse 110 H 11/02/18 19:18 Resp 18 11/02/18 19:18 BP 186/83 H 11/02/18 19:18 Pulse Ox 97 11/02/18 19:18 - Orders/Labs/Meds Meds: Medications Discontinued Medications Generic Name Dose Route Start Last Admin Trade Name Chris PRN Reason Stop Dose Admin Hydromorphone HCl 1 mg 11/02/18 19:27 Dilaudid IM 11/02/18 19:28 ONETIME ONE Departure - Departure Time of Disposition: 19:45 Disposition: Home, Self-Care 01 Condition: Fair Clinical Impression: Acute exacerbation of chronic low back pain - Discharge Information *PRESCRIPTION DRUG MONITORING PROGRAM REVIEWED*: No *COPY OF PRESCRIPTION DRUG MONITORING REPORT IN PATIENT JAVIER: No Instructions: Back Pain, Adult, [id number], Back Exercises, [id number] Referrals: Jerson Lyles NP [Primary Care Provider] - Additional Instructions: Continue your present cares. Substitute [place] for your acetaminophen as needed. See your primary care provider if not improving. Avoid heavy lifting if possible.
== END 2018-11-02 19:45 | disposition home or self-care (01) ==
LOC: JP.ED 18:35
DX: M54.5 Low back pain (principal); F17.210 Nicotine dependence, cigarettes, uncomplicated
CPT/HCPCS: 96372; 99283; J1170

== ENCOUNTER 2019-01-11 17:05 | Emergency (ER) | payer MEDICAID ==
[2019-01-11 17:42] VITALS: BP 132/68
[2019-01-11] MEDS ORDERED: Ketorolac 60 MG/2 ML SDV IM ONE (18:22)
--- NOTE | 2019-01-11 18:22 | EDM.PDOC ---
ED HPI GENERAL MEDICAL PROBLEM - General Chief Complaint: Back Pain or Injury Stated Complaint: BACK PAIN Time Seen by Provider: 01/11/19 18:22 Source of Information: Reports: Patient History Limitations: Reports: No Limitations - History of Present Illness INITIAL COMMENTS - FREE TEXT/NARRATIVE: pt has a chronic history of back pain. 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 He was rolling logs and lifting some things that he should not have. been. Onset: Other ( started the lasrt 24 hours. He may be set up for a epidural for tomorrow. He did call and the nurses there were trying to set him up for the epidural. He has had epidurals in the past and they have susan been helpful He is having pain in the low back and tghe pain is going down the back of the left leg and into his left testicle. The pain in the testicle often goes with this flare of his back. ) Duration: Hour(s): Location: Reports: Back, Lower Extremity, Left, Radiates to (pain radiates into his left testicle. ) Associated Symptoms: Reports: Fever/Chills Lower Back Pain Score (Numeric/FACES): 9 - Related Data Allergies Allergy/AdvReac Type Severity Reaction Status Date / Time Sulfa (Sulfonamide Allergy Hives Verified 01/11/19 17:44 Antibiotics) Home Meds: Home Meds Cyclobenzaprine [Flexeril] 10 mg PO TID 11/02/18 [History] Past Medical History - Past Health History Medical/Surgical History: Denies Medical/Surgical History HEENT History: Reports: Other (See Below) Other HEENT History: multiple broken teeth Musculoskeletal History: Reports: Back Pain, Chronic, Other (See Below) Other Musculoskeletal History: epidural injections. degenerative disk disease Psychiatric History: Reports: Addiction, Anxiety Hematologic History: Reports: Other (See Below) Other Hematologic History: hemachromatosis - Infectious Disease History Infectious Disease History: Reports: Chicken Pox - Past Surgical History HEENT Surgical History: Reports: Adenoidectomy, Tonsillectomy Musculoskeletal Surgical History: Reports: None Social & Family History - Family History Family Medical History: Noncontributory - Tobacco Use Smoking Status *Q: Current Every Day Smoker Years of Tobacco use: 15 Packs/Tins Daily: 0.5 - Caffeine Use Caffeine Use: Reports: None - Recreational Drug Use Recreational Drug Use: No - Living Situation & Occupation Occupation: Employed (Works at [employer].) ED ROS GENERAL - Review of Systems Review Of Systems: See Below Constitutional: Reports: No Symptoms HEENT: Reports: No Symptoms Respiratory: Reports: No Symptoms Cardiovascular: Reports: No Symptoms Endocrine: Reports: No Symptoms GI/Abdominal: Reports: No Symptoms : Reports: No Symptoms Musculoskeletal: Reports: Other (pain in left low back and down the back of his left leg to hisfoot. ) Skin: Reports: No Symptoms Neurological: Reports: No Symptoms Psychiatric: Reports: Anxiety ED EXAM,LOWER BACK PAIN/INJURY - Physical Exam Exam: See Below Text/Narrative:: pt has pain in his left lower back. He has numbness in his left foot and pain into his kleft testicle. Exam Limited By: No Limitations General Appearance: Alert, Moderate Distress Ears: Normal TMs Nose: Normal Inspection Throat/Mouth: Normal Inspection Head: Atraumatic Neck: Normal Inspection Respiratory/Chest: No Respiratory Distress Cardiovascular: Regular Rate, Rhythm GI/Abdominal: Soft, Non-Tender (Male) Exam: Deferred, Other (pt does have some pain going into the left testicle. ) Rectal (Males) Exam: Deferred Back Exam: Other ( tender over the left buttock area. ) Extremities: Other (pt has a straight leg rasing sign in the left leg. ) Neurological: Alert, Oriented x 3 Psychiatric: Anxious Course - Vital Signs Last Recorded V/S: Last Vital Signs Temp 36.9 C 01/11/19 17:49 Pulse 73 01/11/19 17:49 Resp 17 01/11/19 17:49 BP 132/68 01/11/19 17:49 Pulse Ox 97 01/11/19 17:49 - Orders/Labs/Meds Meds: Medications Discontinued Medications Generic Name Dose Route Start Last Admin Trade Name Freq PRN Reason Stop Dose Admin Cyclobenzaprine HCl 10 mg 01/11/19 18:23 01/11/19 18:32 Flexeril PO 01/11/19 18:24 10 mg ONETIME ONE Administration Ketorolac Tromethamine 60 mg 01/11/19 18:22 01/11/19 18:32 Toradol IM 01/11/19 18:23 60 mg ONETIME ONE Administration Oxycodone/Acetaminophen 1 tab 01/11/19 18:24 01/11/19 18:32 Percocet 325-5 Mg PO 01/11/19 18:25 1 tab ONETIME ONE Administration - Re-Assessments/Exams Free Text/Narrative Re-Assessment/Exam: 01/11/19 18:34 pt was given [id number] mg, torodol 60mg im and percocet. pt is more comfortable. 01/11/19 18:50 Departure - Departure Time of Disposition: 18:51 Disposition: Home, Self-Care 01 Condition: Fair Clinical Impression: Lumbar disc disease, Radicular pain of left lower extremity - Discharge Information Referrals: Jerson Lyles DIESEL LUBE TECH [Primary Care Provider] - Forms: ED Department Discharge Care Plan Goals: ice ofr heat to the area--buttock, rest, try to get the epidural tomorrow, flexeril 10 mg bid, naproxen 500mg bid, norco 5/325 q6h prn for severe pain #8
[2019-01-11] MEDS ORDERED: Cyclobenzaprine 10 MG Tab PO ONE (18:23)
[2019-01-11] MEDS ORDERED: Acetaminophen/oxyCODONE 325-5 MG Tab PO ONE (18:24)
== END 2019-01-11 18:57 | disposition home or self-care (01) ==
LOC: JP.ED 17:05
DX: M51.16 Intervertebral disc disorders with radiculopathy, lumbar region (principal); F17.210 Nicotine dependence, cigarettes, uncomplicated; Z88.2 Allergy status to sulfonamides
CPT/HCPCS: 96372; 99283; A9270; J1885

== ENCOUNTER 2019-03-04 22:05 | Emergency (ER) | payer MEDICAID, OTHER ==
[2019-03-04 22:31] VITALS: BP 129/72; PULSE 59
[2019-03-04] MEDS ORDERED: Ketorolac 60 MG/2 ML SDV IM ONE (23:16)
[2019-03-04] MEDS ORDERED: Cyclobenzaprine 10 MG Tab PO ONE (23:16)
--- NOTE | 2019-03-04 23:21 | EDM.PDOC ---
ED HPI GENERAL MEDICAL PROBLEM - General Chief Complaint: Back Pain or Injury Stated Complaint: CHRONIC BACK PAIN Time Seen by Provider: 03/04/19 23:11 Source of Information: Reports: Patient History Limitations: Reports: No Limitations - History of Present Illness INITIAL COMMENTS - FREE TEXT/NARRATIVE: 38 yo male present with pain in lumbar back. He has chronic lumbar pain. Pain is usually controlled with epidural injection his last injection was 3-4 months ago. paraspinal muscle tenderness and spasm. no new injury to back but thinks he may have over done it last week at work. Back Pain Score (Numeric/FACES): 9 - Related Data Allergies Allergy/AdvReac Type Severity Reaction Status Date / Time Sulfa (Sulfonamide Allergy Hives Verified 03/04/19 22:32 Antibiotics) Home Meds: Home Meds Cyclobenzaprine [Flexeril] 10 mg PO TID 11/02/18 [History] Past Medical History - Past Health History Medical/Surgical History: Denies Medical/Surgical History HEENT History: Reports: Other (See Below) Other HEENT History: multiple broken teeth Gastrointestinal History: Reports: GERD Musculoskeletal History: Reports: Back Pain, Chronic, Other (See Below) Other Musculoskeletal History: epidural injections. degenerative disk disease Psychiatric History: Reports: Addiction, Anxiety Hematologic History: Reports: Other (See Below) Other Hematologic History: hemachromatosis Dermatologic History: Reports: Eczema - Infectious Disease History Infectious Disease History: Reports: Chicken Pox - Past Surgical History HEENT Surgical History: Reports: Adenoidectomy, Tonsillectomy Musculoskeletal Surgical History: Reports: None Social & Family History - Family History Family Medical History: Noncontributory - Tobacco Use Smoking Status *Q: Current Every Day Smoker Years of Tobacco use: 15 Packs/Tins Daily: 0.5 - Caffeine Use Caffeine Use: Reports: None - Recreational Drug Use Recreational Drug Use: No - Living Situation & Occupation Occupation: Employed (Works at [employer] ED ROS GENERAL - Review of Systems Review Of Systems: See Below Respiratory: Denies: Shortness of Breath, Wheezing Cardiovascular: Denies: Chest Pain ED EXAM,LOWER BACK PAIN/INJURY - Physical Exam Exam: See Below Exam Limited By: No Limitations General Appearance: Alert, WD/WN, No Apparent Distress Head: Atraumatic, Normocephalic Respiratory/Chest: No Respiratory Distress, Lungs Clear, Normal Breath Sounds, No Accessory Muscle Use, Chest Non-Tender. No: Crackles, Rhonchi, Wheezing Cardiovascular: Regular Rate, Rhythm, No Murmur Back Exam: Muscle Spasm, Paraspinal Tenderness (lumbar left). No: CVA Tenderness (R), CVA Tenderness (L), Vertebral Tenderness Neurological: Alert, Normal Mood/Affect Course - Vital Signs Last Recorded V/S: Last Vital Signs Temp 36.3 C 03/04/19 22:33 Pulse 59 L 03/04/19 22:33 Resp 16 03/04/19 22:33 BP 129/72 03/04/19 22:33 Pulse Ox 98 03/04/19 22:33 - Orders/Labs/Meds Meds: Medications Discontinued Medications Generic Name Dose Route Start Last Admin Trade Name Chris PRN Reason Stop Dose Admin Cyclobenzaprine HCl 10 mg 03/04/19 23:16 03/04/19 23:28 Flexeril PO 03/04/19 23:17 10 mg ONETIME ONE Administration Ketorolac Tromethamine 60 mg 03/04/19 23:16 03/04/19 23:28 Toradol IM 03/04/19 23:17 60 mg ONETIME ONE Administration Departure - Departure Time of Disposition: 23:36 Disposition: Home, Self-Care 01 Condition: Good Clinical Impression: Lumbar back pain, Lumbar disc disease - Discharge Information *PRESCRIPTION DRUG MONITORING PROGRAM REVIEWED*: Not Applicable *COPY OF PRESCRIPTION DRUG MONITORING REPORT IN PATIENT JAVIER: Not Applicable Instructions: Back Injury Prevention, Chronic Back Pain Referrals: Jerson Lyles NP [Primary Care Provider] - Forms: ED Department Discharge Additional Instructions: Etodolac 400 mg twice daily as needed for lumbar pain cyclobenzaprine for muscle spasms ice for pain control follow-up with your primary care provider
== END 2019-03-05 00:01 | disposition home or self-care (01) ==
LOC: JP.ED 22:05
DX: M51.36 Other intervertebral disc degeneration, lumbar region (principal); F17.210 Nicotine dependence, cigarettes, uncomplicated; Z88.2 Allergy status to sulfonamides; Z79.899 Other long term (current) drug therapy
CPT/HCPCS: 96372; 99283; A9270; J1885

== ENCOUNTER 2019-05-30 02:23 | Emergency (ER) | payer SELFPAY ==
[2019-05-30] MEDS ORDERED: fentaNYL 100 MCG/2 ML SDV NASBOTH ONE (02:49)
--- NOTE | 2019-05-30 02:54 | EDM.PDOC ---
ED HPI GENERAL MEDICAL PROBLEM - General Chief Complaint: Genitourinary Problem Stated Complaint: LEFT TESTICULAR PAIN Time Seen by Provider: 05/30/19 02:47 Source of Information: Reports: Patient, RN Notes Reviewed History Limitations: Reports: No Limitations - History of Present Illness INITIAL COMMENTS - FREE TEXT/NARRATIVE: 38-year-old gentleman presents emergency department today with sudden onset of left testicular pain. He states he was asleep and awoke with this pain. he is sexually active has been with the same individual for several years, no fevers no discharge Left Scrotum Pain Score (Numeric/FACES): 10 - Related Data Allergies Allergy/AdvReac Type Severity Reaction Status Date / Time Sulfa (Sulfonamide Allergy Hives Verified 05/30/19 02:37 Antibiotics) Home Meds: Home Meds ARIPiprazole [Abilify] 1 tab PO BEDTIME 05/30/19 [History] Past Medical History HEENT History: Reports: Other (See Below) Other HEENT History: multiple broken teeth Gastrointestinal History: Reports: GERD Musculoskeletal History: Reports: Back Pain, Chronic, Other (See Below) Other Musculoskeletal History: epidural injections. degenerative disk disease Psychiatric History: Reports: Addiction, Anxiety Hematologic History: Reports: Other (See Below) Other Hematologic History: hemachromatosis Dermatologic History: Reports: Eczema - Infectious Disease History Infectious Disease History: Reports: Chicken Pox - Past Surgical History HEENT Surgical History: Reports: Adenoidectomy, Tonsillectomy Musculoskeletal Surgical History: Reports: None Social & Family History - Family History Family Medical History: Noncontributory - Tobacco Use Smoking Status *Q: Current Every Day Smoker Years of Tobacco use: 15 Packs/Tins Daily: 1 Used Tobacco, but Quit: No Second Hand Smoke Exposure: Yes - Caffeine Use Caffeine Use: Reports: Coffee - Recreational Drug Use Recreational Drug Use: No - Living Situation & Occupation Occupation: Employed (Works at [employer].) ED ROS GENERAL - Review of Systems Review Of Systems: See Below GI/Abdominal: Reports: Nausea : Reports: Other (Testicular pain left side) ED EXAM, RENAL/ - Physical Exam Exam: See Below Text/Narrative:: Examination of the genitalia revealed Wilbur stage V male circumcised, he has significant tenderness to the left testicle no significant relief in pain when the testicles elevated he is also tender along the left inguinal canal no lymphadenopathy noted Exam Limited By: No Limitations General Appearance: Alert, Moderate Distress Respiratory/Chest: No Respiratory Distress (Male) Exam: Scrotum Tenderness (L), Testicular Tenderness (L). No: Urethral Discharge Course - Vital Signs Last Recorded V/S: Last Vital Signs Temp 97.5 F 05/30/19 04:23 Pulse 55 L 05/30/19 04:23 Resp 16 05/30/19 04:23 BP 124/59 L 05/30/19 04:23 Pulse Ox 94 L 05/30/19 04:23 - Orders/Labs/Meds Orders: Active Orders 24 hr Category Date Time Status CHLAMYDIA/GC AMPLIFICATION Urgent Lab 05/30/19 03:05 Received Labs: Laboratory Tests 05/30/19 05/30/19 05/30/19 Range/Units 02:50 02:51 02:55 WBC 10.1 (4.5-11.0) K/uL RBC 4.94 (4.30-5.90) M/uL Hgb 15.7 H (12.0-15.0) g/dL Hct 47.0 (40.0-54.0) % MCV 95 (80-98) fL MCH 32 H (27-31) pg MCHC 33 (32-36) % Plt Count 262 (150-400) K/uL Neut % (Auto) 45 (36-66) % Lymph % (Auto) 39 (24-44) % [place] % (Auto) 13 H (2-6) % Eos % (Auto) 3 (2-4) % Baso % (Auto) 1 (0-1) % Sodium 139 L (140-148) mmol/L Potassium 3.6 (3.6-5.2) mmol/L Chloride 102 (100-108) mmol/L Carbon Dioxide 26 (21-32) mmol/L Anion Gap 14.6 H (5.0-14.0) mmol/L BUN 16 (7-18) mg/dL Creatinine 0.9 (0.8-1.3) mg/dL Est Cr Clr Drug Dosing 124.54 mL/min Estimated GFR (MDRD) > 60 (>60) Glucose 108 H (74-106) mg/dL Calcium 9.1 (8.5-10.1) mg/dL Urine Color Yellow (YELLOW) Urine Appearance Clear (CLEAR) Urine pH 7.0 (5.0-8.0) Ur Specific [place] 1.025 (1.008-1.030) Urine Protein Negative (NEGATIVE) mg/dL Urine Glucose (UA) Normal (NEGATIVE) mg/dL Urine Ketones Negative (NEGATIVE) mg/dL Urine Occult Blood Negative (NEGATIVE) Urine Nitrite Negative (NEGATIVE) Urine Bilirubin Negative (NEGATIVE) Urine Urobilinogen 0.2 (0.2-1.0) EU/dL Ur Leukocyte Esterase Trace H (NEGATIVE) Urine RBC 0-5 (0-5) Urine WBC 0-5 (0-5) Ur Epithelial Cells Rare Amorphous Sediment Few Urine Bacteria Few Urine Mucus Not seen Meds: Medications Discontinued Medications Generic Name Dose Route Start Last Admin Trade Name Freq PRN Reason Stop Dose Admin Ceftriaxone Sodium 250 mg 05/30/19 05:15 Rocephin IVPUSH 05/30/19 05:16 ONETIME ONE Fentanyl 50 mcg 05/30/19 02:49 05/30/19 02:57 Sublimaze NASBOTH 05/30/19 02:50 50 mcg ONETIME ONE Administration Hydromorphone HCl 1 mg 05/30/19 03:18 05/30/19 03:22 Dilaudid IVPUSH 05/30/19 03:19 1 mg ONETIME ONE Administration Hydromorphone HCl 0.5 mg 05/30/19 05:20 Dilaudid IVPUSH 05/30/19 05:21 ONETIME ONE Departure - Departure Time of Disposition: 05:23 Disposition: Home, Self-Care 01 Condition: Fair Clinical Impression: Epididymitis Hydrocele Qualifiers: Hydrocele type: unspecified Qualified Code(s): N43.3 - Hydrocele, unspecified - Discharge Information Referrals: Jerson Lyles NP [Primary Care Provider] - Forms: ED Department Discharge Additional Instructions: Take full course of antibiotics, use hydrocodone as needed for pain control please follow-up with your primary care in the next 2-3 days for reevaluation - My Orders Last 24 Hours: My Active Orders 05/30/19 03:05 CHLAMYDIA/GC AMPLIFICATION Urgent - Assessment/Plan Last 24 Hours: My Active Orders 05/30/19 03:05 CHLAMYDIA/GC AMPLIFICATION Urgent Plan: Assessment Acuity = acute Site and laterality = left epididymitis with moderate size hydrocele Etiology = unknown etiology Manifestations = pain Location of injury = Home Lab values = CBC, BMP unremarkable urinalysis unremarkable GC and chlamydia pending ultrasound describes the hydrocele and epididymitis Plan He was given 250 mg Rocephin prescription written for doxycycline 100 mg by mouth twice a day 10 days also hydrocodone 5/325 one tab by mouth 3 times a day when necessary total #10 he will follow up with his primary care in the next 2-3 days for reevaluation and consider consultation with urology This note was dictated using [employer] voice recognition software please call with any questions on syntax or grammar.
[2019-05-30] MEDS ORDERED: HYDROmorphone 1 MG/ML Syringe IM ONE (03:12)
[2019-05-30] MEDS ORDERED: HYDROmorphone 1 MG/ML Syringe IVPUSH ONE (03:18)
[2019-05-30 04:24] VITALS: BP 124/59; PULSE 55
--- NOTE | 2019-05-30 04:56 | CRLUS ---
Indication: Left testicle pain Technique: Ultrasound of the scrotum and contents. Sonographic ordonez-scale images were obtained with spectral and color Doppler waveform and spectral waveform analysis of the testicles. Comparison: None Findings: Right epididymis is normal in echogenicity. Right testicle measures 3.5 x 2.9 x 5.2 centimeters and shows normal blood flow. Trace hydrocele. Left testicle is normal in echogenicity measures 3.8 x 3.4 x 4.6 centimeters. Normal left testicular blood flow. Small to moderate left hydrocele. Left epididymis is mildly prominent midportion although no discrete epididymal hyperemia seen. Impression: 1. Slight enlargement of the left epididymis although without hyperemia. This may be physiologic although mild epididymitis would be possible. 2. Small to moderate left hydrocele and trace right hydrocele. 3. Normal bilateral testicular blood flow. Dictated by Edgar Sequeira MD @ May 30 2019 4:52AM Signed by Dr. Edgar Sequeira @ May 30 2019 4:56AM
[2019-05-30] MEDS ORDERED: cefTRIAXone 500 MG Vial IVPUSH ONE (05:15)
[2019-05-30] MEDS ORDERED: HYDROmorphone 0.5 MG/0.5 ML Syringe IVPUSH ONE (05:20)
[2019-06-01 11:09] LABS: CHLAMYDIA TRACHOMATIS, NAA Negative (Negative); NEISSERIA GONORRHOEAE, NAA Negative (Negative)
== END 2019-05-30 05:50 | disposition home or self-care (01) ==
LOC: JP.ED 02:23
DX: N43.3 Hydrocele, unspecified (principal); N45.1 Epididymitis; F17.210 Nicotine dependence, cigarettes, uncomplicated; Z88.2 Allergy status to sulfonamides; Z98.890 Other specified postprocedural states
CPT/HCPCS: 36415; 76870; 80048; 81001; 85025; 87491; 87591; 96372; 96374; 96375; 96376; 99284; J0696; J1170; J3010

== ENCOUNTER 2019-06-18 11:21 | Emergency (ER) | payer SELFPAY ==
--- NOTE | 2019-06-18 11:31 | EDM.PDOC ---
ED HPI GENERAL MEDICAL PROBLEM - General Chief Complaint: Laceration Stated Complaint: LACERATION FOREHEAD Time Seen by Provider: 06/18/19 11:23 Source of Information: Reports: Patient History Limitations: Reports: No Limitations - History of Present Illness INITIAL COMMENTS - FREE TEXT/NARRATIVE: Tay struck his medial forehead on a door he was opening with his foot prior to arrival. He sustained an abrasion to medial forehead, girlfriend didn' t want him sleeping until he was evaluated in the ED. Patient did no sustain any LOC, no visual changes, headache or vomiting. DT is up to date. Onset: Today, Sudden - Related Data Allergies Allergy/AdvReac Type Severity Reaction Status Date / Time Sulfa (Sulfonamide Allergy Hives Verified 06/18/19 11:32 Antibiotics) Home Meds: Home Meds ARIPiprazole [Abilify] 1 tab PO BEDTIME 05/30/19 [History] Past Medical History - Past Health History Medical/Surgical History: Denies Medical/Surgical History HEENT History: Reports: Other (See Below) Other HEENT History: multiple broken teeth Gastrointestinal History: Reports: GERD Musculoskeletal History: Reports: Back Pain, Chronic, Other (See Below) Other Musculoskeletal History: epidural injections. degenerative disk disease Psychiatric History: Reports: Addiction, Anxiety Hematologic History: Reports: Other (See Below) Other Hematologic History: hemachromatosis Dermatologic History: Reports: Eczema - Infectious Disease History Infectious Disease History: Reports: Chicken Pox - Past Surgical History HEENT Surgical History: Reports: Adenoidectomy, Tonsillectomy Musculoskeletal Surgical History: Reports: None Social & Family History - Family History Family Medical History: Noncontributory - Caffeine Use Caffeine Use: Reports: Coffee - Living Situation & Occupation Occupation: Employed (Works at [employer] ED ROS GENERAL - Review of Systems Review Of Systems: ROS reveals no pertinent complaints other than HPI. ED EXAM, SKIN/RASH Exam: See Below Exam Limited By: No Limitations General Appearance: Alert, WD/WN, No Apparent Distress Eye Exam: Bilateral Eye: EOMI, PERRL Ears: Normal External Exam Nose: Normal Inspection Throat/Mouth: Normal Inspection Head: Normocephalic. No: Facial Swelling, Facial Tenderness Neck: Normal Inspection, Supple, Non-Tender, Full Range of Motion Respiratory/Chest: No Respiratory Distress Cardiovascular: Normal Peripheral Pulses Neurological: Alert, Oriented, CN II-XII Intact, Normal Cognition, No Motor/ Sensory Deficits Psychiatric: Normal Affect, Normal Mood Skin: Warm, Dry, Other (1 cm abrasion to medial forehead) Course - Vital Signs Text/Narrative:: Forehead abrasion Cleaned here, no need for closure. DT up to date. Wound care and head injury precautions discussed as well as reasons to return to the ED. Patient agreeable and discharged in stable condition. Departure - Departure Time of Disposition: 12:00 Disposition: Home, Self-Care 01 Condition: Good Clinical Impression: Abrasion - Discharge Information Referrals: Jerson Lyles NP [Primary Care Provider] - Forms: ED Department Discharge Additional Instructions: Keep clean and dry
[2019-06-18 11:44] VITALS: BP 140/53; PULSE 70
[2019-06-18] MEDS ORDERED: FLU Vacc QS2019-20(6MOS+)/PF 60 MCG/0.5 ML SYRINGE IM ONE (12:00)
== END 2019-06-18 11:45 | disposition home or self-care (01) ==
LOC: JP.ED 11:21
DX: S00.81XA Abrasion of other part of head, initial encounter (principal); K21.9 Gastro-esophageal reflux disease without esophagitis; Z88.2 Allergy status to sulfonamides; Z79.899 Other long term (current) drug therapy; Z23 Encounter for immunization; W22.8XXA Striking against or struck by other objects, initial encounter
CPT/HCPCS: 90471; 90686; 99282; 99282-25

== ENCOUNTER 2019-12-02 11:22 | Emergency (ER) | payer SELFPAY ==
[2019-12-02 12:13] VITALS: BP 151/75; PULSE 81
[2019-12-02] MEDS ORDERED: Lidocaine 4% Top Soln 50 ML Bottle MUCMEM ONE (12:33)
--- NOTE | 2019-12-02 12:34 | EDM.PDOC ---
ED HPI GENERAL MEDICAL PROBLEM - General Chief Complaint: ENT Problem Stated Complaint: R UPPER AND LOWER TOOTH PAIN Time Seen by Provider: 12/02/19 12:29 Source of Information: Reports: Patient History Limitations: Reports: No Limitations - History of Present Illness INITIAL COMMENTS - FREE TEXT/NARRATIVE: pt has a dental appt in [place] for Thursday. He has increased pain in the rt upper molar. He has a tooth that is broken. He has not had a fever. Onset: Today, Other (pain is worse today. ) Duration: Hour(s): Location: Reports: Face Associated Symptoms: Reports: No Other Symptoms Oral/Mouth Pain Score (Numeric/FACES): 9 - Related Data Allergies Allergy/AdvReac Type Severity Reaction Status Date / Time Sulfa (Sulfonamide Allergy Hives Verified 12/02/19 12:05 Antibiotics) Home Meds: Home Meds NK [No Known Home Meds] 12/02/19 [History] Past Medical History - Past Health History Medical/Surgical History: Denies Medical/Surgical History HEENT History: Reports: Other (See Below) Other HEENT History: multiple broken teeth Gastrointestinal History: Reports: GERD Musculoskeletal History: Reports: Back Pain, Chronic, Other (See Below) Other Musculoskeletal History: epidural injections. degenerative disk disease Psychiatric History: Reports: Addiction, Anxiety Hematologic History: Reports: Other (See Below) Other Hematologic History: hemachromatosis Dermatologic History: Reports: Eczema - Infectious Disease History Infectious Disease History: Reports: Chicken Pox - Past Surgical History HEENT Surgical History: Reports: Adenoidectomy, Tonsillectomy Musculoskeletal Surgical History: Reports: None Social & Family History - Family History Family Medical History: Noncontributory - Tobacco Use Smoking Status *Q: Current Every Day Smoker Years of Tobacco use: 22 Packs/Tins Daily: 0.5 - Caffeine Use Caffeine Use: Reports: Coffee - Recreational Drug Use Recreational Drug Use: No - Living Situation & Occupation Occupation: Employed (Works at [email or web address] ED ROS ENT - Review of Systems Review Of Systems: See Below Constitutional: Reports: No Symptoms HEENT: Reports: Dental Pain, Other (pt broke off a upper molar on the rt and is now having alot of pain. ) Respiratory: Reports: No Symptoms Cardiovascular: Reports: No Symptoms Endocrine: Reports: No Symptoms GI/Abdominal: Reports: No Symptoms : Reports: No Symptoms Musculoskeletal: Reports: No Symptoms ED EXAM, ENT - Physical Exam Exam: See Below Text/Narrative:: pt broke one of his upper molars and he now has pain in this area. He does have a dental appt on Thursday in [place]. Exam Limited By: No Limitations General Appearance: Alert, Anxious, Moderate Distress Ears: Normal TMs Nose: Normal Inspection Mouth/Throat: Other (pt has a broken molar on the rt upper. This is very tender. ) Head: Atraumatic Neck: Normal Inspection Respiratory/Chest: No Respiratory Distress Cardiovascular: Regular Rate, Rhythm GI/Abdominal: Soft, Non-Tender (Male) Exam: Deferred Rectal (Males) Exam: Deferred Back: Normal Inspection Extremities: Normal Inspection Neurological: Alert, Oriented, Normal Cognition Psychiatric: Normal Affect Course - Vital Signs Last Recorded V/S: Last Vital Signs Temp 35.7 C L 12/02/19 12:11 Pulse 81 12/02/19 12:11 Resp 16 12/02/19 12:11 BP 151/75 H 12/02/19 12:11 Pulse Ox 97 12/02/19 12:11 - Orders/Labs/Meds Meds: Medications Discontinued Medications Generic Name Dose Route Start Last Admin Trade Name Chris PRN Reason Stop Dose Admin Lidocaine HCl 1 ml 12/02/19 12:33 12/02/19 13:12 Xylocaine 4% Top Soln MUCMEM 12/02/19 12:34 1 ml ONETIME ONE Administration Departure - Departure Time of Disposition: 12:30 Disposition: Home, Self-Care 01 Condition: Fair Clinical Impression: Pain of molar - Discharge Information Instructions: Dental Abscess, [id number] Referrals: PCP,None [Primary Care Provider] - Forms: ED Department Discharge Care Plan Goals: pt has a dental appt in [place] on Thursday. He is to take this discharge summary with him so they know what he was given. Amoxicillin 500mg tid for 10 days, tramodol 50 mg 8h as needed for pain # 10, lidocine 4% use packs to apply to the area for pain Sepsis Event Note - Evaluation Sepsis Screening Result: No Definite Risk - Focused Exam Date Exam was Performed: 12/05/19 Time Exam was Performed: 19:55
== END 2019-12-02 13:17 | disposition home or self-care (01) ==
LOC: JP.ED 11:22
DX: K08.89 Other specified disorders of teeth and supporting structures (principal); K03.81 Cracked tooth; F17.210 Nicotine dependence, cigarettes, uncomplicated; F41.9 Anxiety disorder, unspecified; Z88.2 Allergy status to sulfonamides
CPT/HCPCS: 99282; A9270; 99283

== ENCOUNTER 2020-02-27 05:53 | Emergency (ER) | payer MEDICAID ==
[2020-02-27 06:18] VITALS: BP 200/151; PULSE 110
--- NOTE | 2020-02-27 06:48 | EDM.PDOCBH ---
ED HPI GENERAL MEDICAL PROBLEM - General Chief Complaint: Behavioral/Psych Stated Complaint: EVAL Time Seen by Provider: 02/27/20 06:25 Source of Information: Reports: Patient History Limitations: Reports: No Limitations - History of Present Illness INITIAL COMMENTS - FREE TEXT/NARRATIVE: 39-year-old male who is struggling with depression and anxiety, did not sleep all night because his heart was pounding. He admits to abusing alcohol but "quit 3 days ago". He is on hydroxyzine for anxiety but it is not helping. He is not suicidal and is not thinking of self-harm, but wants to be reassured his heart is okay, would like a note to be off work today and possibly get more medication help for his depression and anxiety. Onset: Unknown/Unsure Associated Symptoms: Reports: Chest Pain (Tightness, palpitations) denies pain Pain Score (Numeric/FACES): 0 - Related Data Allergies Allergy/AdvReac Type Severity Reaction Status Date / Time Sulfa (Sulfonamide Allergy Hives Verified 02/27/20 06:04 Antibiotics) Home Meds: Home Meds hydrOXYzine HCL [Atarax] 25 mg PO QID PRN 02/27/20 [History] Past Medical History - Past Health History Medical/Surgical History: Denies Medical/Surgical History HEENT History: Reports: Other (See Below) Other HEENT History: multiple broken teeth Gastrointestinal History: Reports: GERD Musculoskeletal History: Reports: Back Pain, Chronic, Other (See Below) Other Musculoskeletal History: epidural injections. degenerative disk disease Psychiatric History: Reports: Addiction, Anxiety Hematologic History: Reports: Other (See Below) Other Hematologic History: hemachromatosis Dermatologic History: Reports: Eczema - Infectious Disease History Infectious Disease History: Reports: Chicken Pox - Past Surgical History HEENT Surgical History: Reports: Adenoidectomy, Tonsillectomy Musculoskeletal Surgical History: Reports: None Social & Family History - Family History Family Medical History: Noncontributory - Tobacco Use Smoking Status *Q: Current Every Day Smoker Years of Tobacco use: 20 Packs/Tins Daily: 1 - Caffeine Use Caffeine Use: Reports: Coffee - Alcohol Use Date of Last Drink: 02/24/20 - Recreational Drug Use Recreational Drug Use: Yes Drug Use in Last 12 Months: Yes Recreational Drug Type: Reports: Marijuana/Hashish - Living Situation & Occupation Occupation: Employed (Works at [employer] ED ROS GENERAL - Review of Systems Review Of Systems: See Below Constitutional: Denies: Fever, Chills HEENT: Denies: Vision Change Respiratory: Reports: Shortness of Breath Cardiovascular: Reports: Palpitations, Other (Chest tightness) GI/Abdominal: Denies: Nausea, Vomiting Neurological: Reports: Other (Struggling with insomnia) Psychiatric: Reports: Anxiety, Depression ED EXAM, BEHAVIORAL HEALTH - Physical Exam Exam: See Below Exam Limited By: No Limitations General Appearance: Alert, Anxious Eye Exam: Bilateral Eye: Normal Inspection Respiratory/Chest: No Respiratory Distress, Lungs Clear Cardiovascular: Regular Rate, Rhythm, Tachycardia. No: Extra Beats GI/Abdominal: Non-Tender Extremities: No: Pedal Edema Neurological: Alert, No Motor/Sensory Deficits, Oriented x 3 Psychiatric: Depressed Mood. No: Inattentive, Non-Communicative, Poor Eye Contact COURSE, BEHAVIORAL HEALTH COMP - Course Vital Signs: Last Vital Signs Temp 98.2 F 02/27/20 06:21 Pulse 110 H 02/27/20 06:21 Resp 20 02/27/20 06:21 BP 200/151 H 02/27/20 06:21 Pulse Ox 94 L 02/27/20 06:21 Orders, Labs, Meds: Laboratory Tests 02/27/20 02/27/20 02/27/20 Range/Units 06:38 06:48 06:48 Sodium 143 (140-148) mmol/L Potassium 3.7 (3.6-5.2) mmol/L Chloride 102 (100-108) mmol/L Carbon Dioxide 28 (21-32) mmol/L Anion Gap 13.3 (5.0-14.0) mmol/L BUN 12 (7-18) mg/dL Creatinine 0.9 (0.8-1.3) mg/dL Est Cr Clr Drug Dosing 122.50 mL/min Estimated GFR (MDRD) > 60 (>60) Glucose 131 H (74-106) mg/dL Calcium 8.9 (8.5-10.1) mg/dL Urine Opiates Screen Negative (NEGATIVE) Ur Oxycodone Screen Negative (NEGATIVE) Urine Methadone Screen Negative (NEGATIVE) Ur Propoxyphene Screen Negative (NEGATIVE) Ur Barbiturates Screen Negative (NEGATIVE) Ur Tricyclics Screen Negative (NEGATIVE) Ur Phencyclidine Scrn Negative (NEGATIVE) Ur Amphetamine Screen Negative (NEGATIVE) U Methamphetamines Scrn Negative (NEGATIVE) Urine MDMA Screen Negative (NEGATIVE) U Benzodiazepines Scrn Negative (NEGATIVE) U Cocaine Metab Screen Negative (NEGATIVE) U Marijuana (THC) Screen Negative (NEGATIVE) Ethyl Alcohol 105 mg/dL Re-Assessment/Re-Exam: Patient agreed to urine drug screen, will also check a BMP and an EtOH level. Turned over to Officer pending labs. Lab called and said the urine that was submitted with tap water. Contact the patient about this and he admitted that he poured water into the cup. I told him we would not be able to help him unless we knew the whole picture of his medical condition and he elected to go home. He reiterated he is not suicidal. Departure - Departure Time of Disposition: 07:02 Disposition: Home, Self-Care 01 Clinical Impression: Anxiety and depression - Discharge Information Instructions: Living With Anxiety Referrals: PCP,None [Primary Care Provider] - Forms: ED Department Discharge Care Plan Goals: Continue with your hydroxyzine and avoid any other drugs or alcohol until you are feeling better. No work today. Sepsis Event Note (ED) - Evaluation Sepsis Screening Result: No Definite Risk - Focused Exam Vital Signs: Vital Signs Temp Pulse Resp BP Pulse Ox 02/27/20 06:21 98.2 F 110 H 20 200/151 H 94 L 02/27/20 06:16 98.2 F 110 H 20 200/151 H 94 L
== END 2020-02-27 07:02 | disposition home or self-care (01) ==
LOC: JP.ED 05:53
DX: F41.9 Anxiety disorder, unspecified (principal); F32.9 Major depressive disorder, single episode, unspecified; F17.210 Nicotine dependence, cigarettes, uncomplicated; Z88.2 Allergy status to sulfonamides; Z79.899 Other long term (current) drug therapy
CPT/HCPCS: 36415; 80048; 80305-QW; 80307; 99284